=== PATIENT | female | born 1970 | race Caucasian/White ===

== ENCOUNTER 2018-07-18 13:24 | Outpatient (CLI) | payer OTHER | END 2018-07-18 13:25 | disposition home or self-care (01) | LOC: BICMAMMO 13:24 | PROVIDERS: ATTEND Family Medicine | DX: Z12.31 Encounter for screening mammogram for malignant neoplasm of breast (principal) | CPT/HCPCS: 77063; 77067 ==

== ENCOUNTER 2018-08-01 06:09 | Day surgery (SDC) | payer OTHER ==
[2018-07-31 09:32] VITALS: BMI 39.8
--- NOTE | 2018-08-01 07:02 | HP ---
HISTORY OF PRESENT ILLNESS: Sarah Parker is a 48-year-old female with anemia, chronic acid reflux, and Yun's mucosa. The patient had an EGD done by Dr. Dileep Baker and was told to have Yun's mucosa. The patient at the present time has a good control of acid reflux. The patient was fount to have anemia recently. The patient comes in for EGD because of a history of Yun's mucosa and also for a colonoscopy because of anemia. No other relevant history. ALLERGIES [place]. SOCIAL HISTORY: The patient does not smoke or drink alcohol. MEDICAL ILLNESSES: 1. Obesity. 2. Depression. 3. Anxiety. 4. Chronic acid reflux, Yun's mucosa. 5. Hiatal hernia. 6. Cataracts. 7. Hypothyroidism. 8. Osteoporosis. 9. Hiatal hernia repairs. 10. Partial hysterectomy. 11. Gastric banding followed by gastric sleeve. 12. Cholecystectomy. PHYSICAL EXAMINATION: GENERAL: Obese, appears comfortable. VITAL SIGNS: Pulse is 70, blood pressure 130/70. HEENT: Conjunctivae clear. CARDIOVASCULAR: First and second heart sounds normal. LUNGS: Clear to auscultation. ABDOMEN: Soft. No organomegaly. No tenderness. No masses. ADMITTING DIAGNOSES: 1. Anemia with no history of blood loss. 2. Chronic acid reflux, Yun's mucosa. 3. Hiatal hernia repair. 4. Gastric surgery. PLAN: EGD and colonoscopy. Job ID: [id number]
--- NOTE | 2018-08-01 12:22 | OP ---
DATE OF PROCEDURE: 08/01/2018 OPERATIVE PROCEDURE: Colonoscopy, attempted. The procedure terminated because of large amount of solid stools. PREOPERATIVE DIAGNOSES: Anemia, colon cancer. POSTOPERATIVE DIAGNOSIS: Failed colonoscopy because of retained stool. DESCRIPTION OF PROCEDURE: The patient was placed on the left lateral position and was given sedation by Anesthesia Department. A rectal exam was done. The scope was advanced into the rectum. No lesions felt on rectal exam. A Pentax video colonoscope was first introduced into the rectum and advanced to a distance of about 56 cm from the anal margin. The patient tried to wash out. I was hoping the proximal colon to be clean, but she had lot of stool and after reaching about 60 to 70 cm, the procedure was aborted. DISCHARGE PLANNING: This is a 48-year-old female, came for an EGD because of longstanding acid reflux and history of Yun mucosa. She also came for colonoscopy for anemia and colon cancer. The colonoscopy was unsuccessful because of retained stool. The EGD showed esophagitis, small hiatus hernia. Four-quadrant biopsy . DISCHARGE RECOMMENDATIONS: 1. Resume medicines as before. 2. We will bring the patient back in the near future for colonoscopy because of poor prep. Job ID: [id number]
--- NOTE | 2018-08-01 13:17 | OP ---
DATE OF PROCEDURE: 08/01/2018 PROCEDURES PERFORMED: Esophagogastroduodenoscopy with biopsy. PREOPERATIVE DIAGNOSES: Chronic acid reflux, history of Yun mucosa. POSTOPERATIVE DIAGNOSES: 1. Esophagitis, distal esophagus with edematous esophageal mucosa. 2. Small hiatal hernia. 3. Otherwise normal stomach and duodenum. DESCRIPTION OF PROCEDURE: The patient was placed on her left lateral position and was given sedation by Anesthesia Department. Pentax video gastroscope under direct vision was passed down the oropharynx past the GE junction into the stomach. The vocal cords appeared healthy. The upper two-thirds of the esophagus appeared normal. Over the distal esophagus, the patient was found to have mucosal edema, friability, and esophagitis. small hiatal hernia. Biopsy obtained from distal esophagus. Retroflexion of scope in the stomach revealed no pathology. In the gastric body, gastric antrum, no lesion seen. In the duodenal bulb, descending duodenum, no pathology seen. The scope was withdrawn back to the stomach. The stomach decompressed and Job ID: [id number]
== END 2018-08-01 08:50 | disposition home or self-care (01) ==
LOC: SDC 06:09
PROVIDERS: ATTEND Internal Medicine Gastroenterology
PROC: 0DB58ZX Excision of Esophagus, Via Natural or Artificial Opening Endoscopic, Diagnostic (ICD-10-PCS; principal; 2018-08-01)
PROC: 0DJD8ZZ Inspection of Lower Intestinal Tract, Via Natural or Artificial Opening Endoscopic (ICD-10-PCS; principal; 2018-08-01)
DX: K22.70 Barrett's esophagus without dysplasia (principal); K21.9 Gastro-esophageal reflux disease without esophagitis; K44.9 Diaphragmatic hernia without obstruction or gangrene; K20.9 Esophagitis, unspecified; D64.9 Anemia, unspecified; E03.9 Hypothyroidism, unspecified; F32.9 Major depressive disorder, single episode, unspecified; F41.9 Anxiety disorder, unspecified; H26.9 Unspecified cataract; M81.0 Age-related osteoporosis without current pathological fracture; E66.9 Obesity, unspecified; Z68.39 Body mass index [BMI] 39.0-39.9, adult; Z90.711 Acquired absence of uterus with remaining cervical stump; Z90.49 Acquired absence of other specified parts of digestive tract; Z98.84 Bariatric surgery status; Z79.899 Other long term (current) drug therapy
CPT/HCPCS: 88305; 88312; 88313

== ENCOUNTER 2019-01-02 06:50 | Day surgery (SDC) | payer OTHER ==
[2019-01-01 12:36] VITALS: BMI 38.2
--- NOTE | 2019-01-01 23:53 | HP ---
HISTORY OF PRESENT ILLNESS: The patient is a 48-year-old female, who comes in for an EGD and a colonoscopy. The patient has had dysphagia _tosolid foods, dysphagia only with solid foods. The dysphagia occurs usually with solid foods, particularly meat and bread. She also has mild anemia recently. The patient comes for an EGD because of dysphagia and for colonoscopy for anemia and colon cancer screening. ALLERGIES: LITHIUM. MEDICAL ILLNESS: 1. Chronic acid reflux. 2. History of Yun's mucosa. 3. Migraine. 4. Hypothyroidism. 5. Depression. 6. Anxiety. PHYSICAL EXAMINATION: VITAL SIGNS: Weight is 262 pounds. Pulse is 72, blood pressure 110/70. HEENT: Conjunctivae clear. CARDIOVASCULAR SYSTEM: First and second heart sounds heard. LUNGS: Clear to auscultation. ABDOMEN: Soft. No organomegaly. No tenderness. No masses. EXTREMITIES: Reveal no edema. ADMITTING DIAGNOSIS: A 48-year-old female with dysphagia, mild anemia. PLAN: EGD and colonoscopy. Job ID: [id number] MTDD
--- NOTE | 2019-01-02 10:35 | OP ---
DATE OF PROCEDURE: 01/02/2019 PROCEDURE PERFORMED: Attempted colonoscopy, incomplete due to retained solid stool in the sigmoid colon. DESCRIPTION OF PROCEDURE: The patient was placed on her left lateral position and was given sedation by Anesthesia Department. A rectal exam was done before the scope was advanced into the rectum. No lesions felt on rectal exam. Pentax video colonoscope was introduced into the rectum and advanced to a distance of about 30-34 cm. The mucosa appeared normal. Around 30 cm, the patient had a large amount of solid stool. I tried to irrigate with water to try to see whether I can clean the out the colon. We tried to wash out and get past the area of stool blocking lumen. Also, unable to do so. After 15 minutes of irrigation, not able to clean out the colon, The procedure was terminated. DISCHARGE PLANNING: This is a 48-year-old female came for EGD and colonoscopy. The EGD showed irregular Z-line. The colonoscopy was unsuccessful because of retained stool. Plan is to bring the patient in the near future for colonoscopy. Job ID: [id number] [facility]
--- NOTE | 2019-01-02 13:01 | OP ---
DATE OF PROCEDURE: 01/02/2019 PROCEDURE PERFORMED: Esophagogastroduodenoscopy with biopsy. PREOPERATIVE DIAGNOSIS: Dysphagia and anemia. POSTOPERATIVE DIAGNOSES: 1. No esophageal narrowing seen. 2. Irregular Z-line with mild mucosal friability. 3. Normal stomach and duodenum. The patient has had previous gastric sleeve surgery and no other pathology seen in the stomach. DESCRIPTION OF PROCEDURE: The patient was placed on her left lateral position and was given sedation by Anesthesia Department. A Pentax video gastroscope under direct vision passed down the oropharynx to the GE junction into the stomach and subsequently into the descending duodenum. Although, the patient complained of dysphagia, according to the endoscopy, the esophageal mucosa appeared normal. There was no esophageal stricture seen. The GE junction was wide open. The Z-line was irregular with mild friability. Biopsy obtained from the GE junction. The patient had a previous gastric sleeve. The gastric body, gastric antrum, fundus and cardia, no pathology seen. The duodenal bulb, descending duodenum, no pathology seen. The stomach decompressed and scope removed. Job ID: [id number]
[2019-01-02] MEDS ORDERED: PROPOFOL 200 MG/20 ML VIAL ONE (13:17)
== END 2019-01-02 09:42 | disposition home or self-care (01) ==
LOC: SDC 06:50
PROVIDERS: ATTEND Internal Medicine Gastroenterology
PROC: 0DB88ZX Excision of Small Intestine, Via Natural or Artificial Opening Endoscopic, Diagnostic (ICD-10-PCS; principal; 2019-01-02)
PROC: 0DJD8ZZ Inspection of Lower Intestinal Tract, Via Natural or Artificial Opening Endoscopic (ICD-10-PCS; principal; 2019-01-02)
DX: D64.9 Anemia, unspecified (principal); R13.10 Dysphagia, unspecified; K21.9 Gastro-esophageal reflux disease without esophagitis; E03.9 Hypothyroidism, unspecified; F32.9 Major depressive disorder, single episode, unspecified; F41.9 Anxiety disorder, unspecified; Z88.8 Allergy status to other drugs, medicaments and biological substances
CPT/HCPCS: 88305; 88312; 88313; J2704

== ENCOUNTER 2020-02-09 15:29 | Emergency (ER) | payer OTHER, SELFPAY ==
[~2020-02-09 15:29] MED LIST: Iopamidol-370 76% 500 ML 1 ML ONE
--- NOTE | 2020-02-09 16:24 | RAD ---
Chest AP view INDICATION: Syncopal episode with abdominal pain COMPARISON: June 16, 2014 FINDINGS: Lungs: The lungs are clear Cardiac silhouette: The cardiomediastinal silhouette appears within normal limits. Pulmonary vasculature: Normal Pleural spaces: No pleural effusion or pneumothorax is demonstrated. Upper abdomen: No abnormality seen. Osseous structures: No acute osseous abnormality. Additional findings: None. IMPRESSION: No acute cardiopulmonary abnormality.
[2020-02-09 16:32] LABS: Hemoglobin 10.1 g/dL (12.0-16.0); Mean Corpuscular HGB CONC 31.2 g/dL (32.0-36.0); Mean Corpuscular Hemoglobin 21.8 pg (27.0-31.0); Mean Platelet Volume 9.6 fL (7.4-10.4); Platelet Count 359 thou/uL (130-400); RBC Distribution Width 16.6 % (11.5-14.5); White Blood Cell (WBC) Count 9.6 thou/uL (4.8-10.8)
[2020-02-09 16:49] LABS: ALT (SGPT) 17 U/L (8-55); AST (SGOT) 17 U/L (5-34); Albumin 3.9 g/dL (3.5-5.0); Alkaline Phosphatase 121 U/L (40-110); Anion Gap 13 mmol/L (10-20); BUN (Urea Nitrogen) 9 mg/dL (9.8-20.1); Bilirubin, Total 0.5 mg/dL (0.2-1.2); Calc. Creatinine Clearance 0 mL/min (70-130); Calcium 9.3 mg/dL (7.8-10.44); Carbon Dioxide 25 mmol/L (22-29); Chloride 104 mmol/L (98-107); Estimated GFR-MDRD 60; Globulin 3.6 g/dL (2.4-3.5); Glucose 105 mg/dL (70-105); Lipase 12 U/L (8-78); Potassium 3.1 mmol/L (3.5-5.1); Protein, Total 7.5 g/dL (6.0-8.3); Sodium 139 mmol/L (136-145)
[2020-02-09 16:53] LABS: #Eosinphils 0.1 thou/uL (0.0-0.7); #Lymphocytes 1.1 thou/uL (1.20-3.40); #Monocytes 0.7 thou/uL (0.11-0.59); #Neutrophils 7.6 thou/uL (1.40-6.50); %Basophils 0.4 % (0.0-1.0); %Eosinophils 1.5 % (0.0-10.0); %Monocytes 7.6 % (0.0-10.0); %Neutrophils 79.6 % (42.0-75.0); MDiff Complete? YES; Microcytosis SLIGHT = 6-15 cells (100X) (0-5/hpf)
[2020-02-09 17:01] LABS: Bilirubin 1+ (Negative); Blood, Urine Negative (Negative); Clarity Turbid (Clear); Glucose, Urine (Dipstick) Normal (Negative); Leukocyte 250 Leu/uL (Negative); Nitrite Negative (Negative); Protein, Urine (Dipstick) 50 mg/dL (Neg-Trace); RBC/HPF 0-3 HPF (0-3); Squamous Epithelial 21-50 HPF (0-3)
[2020-02-09 17:12] LABS: Bacteria/HPF 2+ HPF (None Seen)
[2020-02-09 17:13] LABS: Mucous/LPF 1+ LPF (<2+)
--- NOTE | 2020-02-09 17:28 | CT ---
CT OF THE ABDOMEN AND PELVIS WITH IV CONTRAST INDICATION: Left lower quadrant abdominal pain COMPARISON: CT of the chest, abdomen and pelvis dated June 16, 2014 FINDINGS: ABDOMEN: Lung bases: Clear Liver: Fatty infiltration Gallbladder: Surgically absent Pancreas: Normal. Adrenal glands: Normal. Spleen: Normal. Kidneys and ureters: No focal renal lesion or hydronephrosis. There is a retroaortic left renal vein. Vasculature: There are mild vascular calcifications seen involving the visualized vasculature. Lymph nodes:No lymphadenopathy. Free fluid in abdomen:No free fluid is evident. PELVIS: Small and large bowel: There is a mild amount retained stool within the colon. Small bowel is of norm al caliber. The right colon and transverse colon are poorly distended. Appendix:Normal Bladder: Normal. Rectal and perirectal soft tissues:Normal. Reproductive structures: Surgically absent Free fluid in pelvis: No free fluid is evident. Lymphadenopathy pelvis: No lymphadenopathy is evident. Osseous structures: There is diffuse osteopenia. No acute fracture or subluxation demonstrated. Ther e is scattered degenerative and osteoarthritic changes. Soft tissues:There is dystrophic calcification seen within the soft tissues overlying the right glute al region possibly related to prior injections. IMPRESSION: 1. No acute abnormality. 2. Fatty liver 3. Chronic findings as above
== END 2020-02-09 18:53 | disposition home or self-care (01) ==
LOC: ERS 15:29
DX: N39.0 Urinary tract infection, site not specified (principal); E86.0 Dehydration; F31.9 Bipolar disorder, unspecified; F41.9 Anxiety disorder, unspecified; Z79.899 Other long term (current) drug therapy
CPT/HCPCS: 36415; 71045; 74177; 80053; 81003; 81015; 83690; 84484; 85025; 93005; 96360; Q9967

== ENCOUNTER 2021-01-22 15:07 | Outpatient (CLI) | payer OTHER | END 2021-01-22 15:08 | disposition home or self-care (01) | LOC: BICMAMMO 15:07 | PROVIDERS: ATTEND Family Medicine | DX: Z12.31 Encounter for screening mammogram for malignant neoplasm of breast (principal); Z98.890 Other specified postprocedural states; Z91.89 Other specified personal risk factors, not elsewhere classified | CPT/HCPCS: 77063; 77067 ==

== ENCOUNTER 2021-08-20 15:10 | Outpatient (CLI) | payer OTHER ==
[2021-08-20 16:26] LABS: #Basophils 0.1 10x3/uL (0.0-0.2); #Eosinphils 0.3 10x3/uL (0.0-0.5); #Monocytes 0.7 10x3/uL (0.0-1.1); #Neutrophils 4.9 10x3/uL (1.5-8.4); %Basophils 0.6 % (0.0-2.0); %Eosinophils 3.8 % (0.0-6.0); %Lymphocytes 30.7 % (18.0-47.0); %Monocytes 7.7 % (0.0-10.0); %Neutrophils 56.7 % (40.0-75.0); Hemoglobin 12.8 g/dL (12.0-15.5); Mean Corpuscular HGB CONC 32.3 g/dL (32.0-36.0); Mean Corpuscular Hemoglobin 28.7 pg (27.0-33.0); Mean Corpuscular Volume 88.8 fl (81.6-98.3); Platelet Count 296 10x3/uL (150-450); RBC Distribution Width 13.2 % (11.5-14.5); Red Blood Cell (RBC) Count 4.46 10x6/uL (3.90-5.03); White Blood Cell (WBC) Count 8.6 10x3/uL (3.5-10.5)
[2021-08-21 08:54] LABS: SARS-CoV-2 PCR by NAA Not Detected (NotDetected)
== END 2021-08-20 15:11 | disposition home or self-care (01) ==
LOC: LABBT 15:10
PROVIDERS: ATTEND Orthopaedic Surgery Hand Surgery
DX: Z01.812 Encounter for preprocedural laboratory examination (principal); G56.03 Carpal tunnel syndrome, bilateral upper limbs; Z20.822 Contact with and (suspected) exposure to COVID-19
CPT/HCPCS: 85025; U0003; U0005

== ENCOUNTER 2021-08-25 09:02 | Day surgery (SDC) | payer OTHER ==
[2021-08-18 14:31] VITALS: BMI 40.7
[2021-08-25] MEDS ORDERED: ceFAZolin 2 GM/DEX 5% 100 ML BAG ONE (10:52)
[2021-08-25] MEDS ORDERED: Midazolam HCl 2 mg/2 ml Vial ONE (12:44)
== END 2021-08-25 14:00 | disposition home or self-care (01) ==
LOC: SDC 09:02
PROVIDERS: ATTEND Orthopaedic Surgery Hand Surgery
DX: G56.03 Carpal tunnel syndrome, bilateral upper limbs (principal); G56.13 Other lesions of median nerve, bilateral upper limbs; Z53.9 Procedure and treatment not carried out, unspecified reason; Z79.899 Other long term (current) drug therapy; Z88.2 Allergy status to sulfonamides; Z88.8 Allergy status to other drugs, medicaments and biological substances
CPT/HCPCS: J2250

== ENCOUNTER 2021-08-28 05:49 | Day surgery (SDC) | payer OTHER ==
[2021-08-28] MEDS ORDERED: Fentanyl 100 MCG/2 ML VIAL ONE (06:09)
[2021-08-28] MEDS ORDERED: Phenylephrine 10 MG/ML VIAL ONE (06:09)
[2021-08-28] MEDS ORDERED: Sodium Chloride 0.9% 10 ML ONE (06:09)
[2021-08-28] MEDS ORDERED: PHENYLEPHRINE-NS 100 MCG/ML 10 ML SYRINGE ONE ×2 (06:09→07:22)
[2021-08-28] MEDS ORDERED: Midazolam HCl 2 mg/2 ml Vial ONE (06:09)
[2021-08-28] MEDS ORDERED: HYDROmorphone 2 MG/ML VIAL ONE (06:09)
[2021-08-28] MEDS ORDERED: Bacitracin Zinc Ointment 30 gm TUBE ONE (06:15)
[2021-08-28] MEDS ORDERED: Betamet Acet/Betamet Na Ph 30 MG/5 ML VIAL ONE ×2 (06:15→08:25)
[2021-08-28] MEDS ORDERED: Bupivacaine PF 0.5% 30 ML VIAL ONE ×2 (06:15→07:50)
[2021-08-28] MEDS ORDERED: Neomycin-Polymyxin 1 ML AMP ONE (06:15)
[2021-08-28] MEDS ORDERED: ceFAZolin 2 GM/Dextrose 50 ML IVPB ONE (07:07)
[2021-08-28] MEDS ORDERED: Dexamethasone 20 MG/5 ML VIAL ONE (07:22)
[2021-08-28] MEDS ORDERED: Succinylcholine 200 MG/10 ml SYRINGE FS ONE (07:22)
[2021-08-28] MEDS ORDERED: PROPOFOL 200 MG/20 ML VIAL ONE (07:22)
[2021-08-28] MEDS ORDERED: Ondansetron PF 4 MG/2 ML Vial ONE (07:22)
[2021-08-28] MEDS ORDERED: Lidocaine 1% PF 5 ML VIAL ONE (07:22)
[2021-08-28] MEDS ORDERED: ePHEDrine 50 MG/ML VIAL ONE (07:22)
[2021-08-28] MEDS ORDERED: Bupivacaine 0.25% HCL 30 ML VIAL ONE ×2 (07:49→07:50)
[2021-08-28] MEDS ORDERED: Ketorolac Tromethamine 30 MG/ML VIAL ONE (10:00)
== END 2021-08-28 11:48 | disposition home or self-care (01) ==
LOC: SDC 05:49
PROVIDERS: ATTEND Orthopaedic Surgery Hand Surgery
PROC: 01N50ZZ Release Median Nerve, Open Approach (ICD-10-PCS; principal; 2021-08-28)
DX: G56.03 Carpal tunnel syndrome, bilateral upper limbs (principal); G56.13 Other lesions of median nerve, bilateral upper limbs; D64.9 Anemia, unspecified; Z79.890 Hormone replacement therapy; Z79.899 Other long term (current) drug therapy; Z88.2 Allergy status to sulfonamides; Z88.8 Allergy status to other drugs, medicaments and biological substances
CPT/HCPCS: C1889; J0690; J0702; J1170; J1885; J2250; J2370; J3010; S0020

== ENCOUNTER 2021-12-23 08:15 | Inpatient (IN) | payer OTHER ==
[2021-12-23] MEDS ORDERED: Ketorolac Tromethamine 30 MG/ML VIAL ONE (08:43)
[2021-12-23 09:18] LABS: ALT (SGPT) 28 U/L (8-55); AST (SGOT) 31 U/L (5-34); Albumin 3.4 g/dL (3.5-5.0); Alkaline Phosphatase 102 U/L (40-110); Anion Gap 9 mmol/L (10-20); BUN (Urea Nitrogen) 21 mg/dL (9.8-20.1); Bilirubin, Total 0.6 mg/dL (0.2-1.2); CK (CPK) 566 U/L (29-168); Calc. Creatinine Clearance 0 mL/min (70-130); Calcium 8.9 mg/dL (7.8-10.44); Carbon Dioxide 35 mmol/L (22-29); Chloride 100 mmol/L (98-107); Globulin 2.5 g/dL (2.4-3.5); Glucose 104 mg/dL (70-105); Protein, Total 5.9 g/dL (6.0-8.3); Sodium 141 mmol/L (136-145)
[2021-12-23 09:23] LABS: Potassium 2.5 mmol/L (3.5-5.1)
[2021-12-23] MEDS ORDERED: Potassium Chloride 20 MEQ TAB ONE (10:24)
[2021-12-23] MEDS ORDERED: Potassium Chloride 20 MEQ/100 ML PREMIX BAG ONE ×2 (10:24→12:12)
[2021-12-23] MEDS ORDERED: Morphine 4 MG/ML VIAL ONE (10:30)
[2021-12-23 10:57] LABS: #Eosinphils 0.2 thou/uL (0.0-0.7); #Lymphocytes 1.7 thou/uL (1.20-3.40); #Monocytes 0.7 thou/uL (0.11-0.59); #Neutrophils 9.8 thou/uL (1.40-6.50); %Basophils 0.3 % (0.0-1.0); %Eosinophils 1.9 % (0.0-10.0); %Lymphocytes 13.6 % (21.0-51.0); %Monocytes 5.3 % (0.0-10.0); %Neutrophils 78.9 % (42.0-75.0); Hemoglobin 12.5 g/dL (12.0-16.0); Mean Corpuscular HGB CONC 32.4 g/dL (32.0-36.0); Mean Corpuscular Hemoglobin 29.6 pg (27.0-31.0); Mean Corpuscular Volume 91.2 fL (78.0-98.0); Mean Platelet Volume 7.7 fL (7.4-10.4); Platelet Count 248 thou/uL (130-400); RBC Distribution Width 12.2 % (11.5-14.5); Red Blood Cell (RBC) Count 4.21 mill/uL (4.20-5.40); White Blood Cell (WBC) Count 12.4 thou/uL (4.8-10.8)
[2021-12-23 11:09] LABS: Magnesium 1.9 mg/dL (1.6-2.6); Phosphorus 2.9 mg/dL (2.3-4.7)
[2021-12-23] MEDS ORDERED: Dextrose 50% Abboject 50 ML SYRINGE SLOW IVP PRN (11:31)
[2021-12-23] MEDS ORDERED: Dextrose 5% in Water 1,000 ML IV PRN (11:31)
[2021-12-23] MEDS ORDERED: Ondansetron ODT 4 MG TAB PO PRN (11:31)
[2021-12-23] MEDS ORDERED: hydrALAZINE 20 MG/ML VIAL SLOW IVP PRN (11:31)
[2021-12-23] MEDS ORDERED: Ondansetron PF 4 MG/2 ML Vial IVP PRN (11:31)
[2021-12-23] MEDS ORDERED: Morphine 2 MG/ML VIAL SLOW IVP PRN (11:31)
[2021-12-23] MEDS ORDERED: Ibuprofen 800 MG TAB PO PRN (11:41)
[2021-12-23] MEDS ORDERED: Gabapentin 100 MG CAP PO SCH (14:00)
[2021-12-23] MEDS: Acetaminophen 500 MG TAB PO SCH ×3 (14:08→23:27)
[2021-12-23] MEDS: traMADol HCl 50 MG TAB PO SCH ×3 (14:08→23:27)
[2021-12-23] MEDS ORDERED: ceFAZolin (BATCH) 2 GM in Premix Bag 1 BAG IVPB SCH (15:00)
[2021-12-23 16:08] VITALS: BMI 38.9
[2021-12-23] MEDS: Cyclobenzaprine 10 MG TAB PO PRN (17:41)
[2021-12-23] MEDS: Sodium Chloride 0.9% 1,000 ML IV SCH (17:44)
[2021-12-23] MEDS: Morphine 4 MG/ML VIAL SLOW IVP PRN ×2 (18:27→20:54)
[2021-12-23] MEDS ORDERED: Zolpidem Tartrate 5 MG TAB PO PRN (19:57)
[2021-12-23] MEDS: Senokot S 8.6-50 MG TAB PO SCH (20:49)
[2021-12-23] MEDS ORDERED: Famotidine 20 MG TAB PO SCH (21:00)
[2021-12-23] MEDS: Gabapentin 300 MG CAP PO SCH (21:51)
[2021-12-24 00:20] LABS: SARS-CoV-2 NAA Rapid Test Not Detected (NotDetected)
[2021-12-24] MEDS: traMADol HCl 50 MG TAB PO SCH ×4 (00:54→17:43)
[2021-12-24] MEDS: Sodium Chloride 0.9% 1,000 ML IV SCH (02:13)
[2021-12-24] MEDS: Cyclobenzaprine 10 MG TAB PO PRN ×2 (02:17→21:52)
[2021-12-24] MEDS: Ibuprofen 200 MG TAB PO PRN ×2 (02:17→10:16)
[2021-12-24] MEDS: Morphine 4 MG/ML VIAL SLOW IVP PRN ×2 (04:07→07:45)
[2021-12-24] MEDS ORDERED: Levothyroxine Sodium 75 MCG TAB PO SCH ×2 (06:00→09:00)
[2021-12-24] MEDS: Acetaminophen 500 MG TAB PO SCH ×3 (06:00→17:44)
[2021-12-24] MEDS: Gabapentin 300 MG CAP PO SCH ×4 (06:02→21:38)
[2021-12-24 06:22] LABS: Anion Gap 13 mmol/L (10-20); BUN (Urea Nitrogen) 17 mg/dL (9.8-20.1); Calc. Creatinine Clearance 163 mL/min (70-130); Calcium 8.3 mg/dL (7.8-10.44); Carbon Dioxide 26 mmol/L (22-29); Chloride 106 mmol/L (98-107); Glucose 91 mg/dL (70-105); Potassium 3.2 mmol/L (3.5-5.1); Sodium 142 mmol/L (136-145)
[2021-12-24 06:34] LABS: #Eosinphils 0.1 thou/uL (0.0-0.7); #Lymphocytes 1.9 thou/uL (1.20-3.40); #Monocytes 0.7 thou/uL (0.11-0.59); #Neutrophils 7.5 thou/uL (1.40-6.50); %Basophils 0.3 % (0.0-1.0); %Eosinophils 0.9 % (0.0-10.0); %Lymphocytes 18.7 % (21.0-51.0); %Monocytes 7.2 % (0.0-10.0); %Neutrophils 72.8 % (42.0-75.0); Hemoglobin 11.9 g/dL (12.0-16.0); Mean Corpuscular HGB CONC 33.1 g/dL (32.0-36.0); Mean Corpuscular Hemoglobin 31.2 pg (27.0-31.0); Mean Corpuscular Volume 94.1 fL (78.0-98.0); Mean Platelet Volume 7.3 fL (7.4-10.4); Platelet Count 245 thou/uL (130-400); RBC Distribution Width 12.3 % (11.5-14.5); Red Blood Cell (RBC) Count 3.82 mill/uL (4.20-5.40); White Blood Cell (WBC) Count 10.2 thou/uL (4.8-10.8)
[2021-12-24 07:00] LABS: CK (CPK) 284 U/L (29-168); Phosphorus 3.1 mg/dL (2.3-4.7)
[2021-12-24] MEDS: DULoxetine 60 MG CAP PO SCH (07:50)
[2021-12-24] MEDS: Multivit, Therapeutic 1 TAB PO SCH (07:50)
[2021-12-24] MEDS: Senokot S 8.6-50 MG TAB PO SCH ×2 (07:51→21:37)
[2021-12-24] MEDS: Polyethylene Glycol 3350 17 GM Packet PO SCH (07:59)
[2021-12-24] MEDS ORDERED: Potassium Chloride 40 MEQ in Premix Bag 1 BAG IVPB SCH (08:00)
[2021-12-24] MEDS ORDERED: DULoxetine 60 MG CAP PO SCH (09:00)
[2021-12-24] MEDS ORDERED: ceFAZolin (BATCH) 2 GM/100 ML BAG ONE (12:52)
[2021-12-24] MEDS ORDERED: Succinylcholine 200 MG/10 ml SYRINGE FS ONE (12:57)
[2021-12-24] MEDS ORDERED: Albuterol Sulfate HFA (OR ONLY) ONE ×2 (12:57→13:13)
[2021-12-24] MEDS ORDERED: Dexamethasone 20 MG/5 ML VIAL ONE (12:57)
[2021-12-24] MEDS ORDERED: PROPOFOL 200 MG/20 ML VIAL ONE (12:57)
[2021-12-24] MEDS ORDERED: Glycopyrrolate 0.2 MG/ML 5 ML SYRINGE ONE (12:57)
[2021-12-24] MEDS ORDERED: PHENYLEPHRINE-NS 100 MCG/ML 10 ML SYRINGE ONE (12:57)
[2021-12-24] MEDS ORDERED: ePHEDrine 50 MG/ML VIAL ONE (12:57)
[2021-12-24] MEDS ORDERED: Lidocaine 1% PF 5 ML VIAL ONE (12:57)
[2021-12-24] MEDS ORDERED: Ondansetron PF 4 MG/2 ML Vial ONE (12:57)
[2021-12-24] MEDS ORDERED: fentaNYL Citrate/PF 100 MCG/2 ML SYRINGE ONE ×2 (12:58→14:10)
[2021-12-24] MEDS ORDERED: Promethazine HCl 25 MG/ML VIAL IVPB PRN (14:37)
[2021-12-24] MEDS ORDERED: Ketorolac Tromethamine 30 MG/ML VIAL IVP PRN (14:37)
[2021-12-24] MEDS ORDERED: Promethazine HCl 25 MG/ML VIAL IM PRN (14:37)
[2021-12-24] MEDS ORDERED: Ondansetron HCl/PF 4 MG/2 ML Vial IVP PRN (14:37)
[2021-12-24] MEDS ORDERED: Fentanyl 100 MCG/2 ML VIAL ONE ×2 (14:47→15:26)
[2021-12-24] MEDS: traMADol HCl 50 MG TAB PO PRN (17:46)
[2021-12-24] MEDS: ceFAZolin (BATCH) 2 GM in Premix Bag 1 BAG IVPB SCH (21:36)
[2021-12-24] MEDS: Zolpidem Tartrate 5 MG TAB PO SCH (21:38)
[2021-12-25] MEDS: Acetaminophen 500 MG TAB PO SCH ×5 (00:54→23:44)
[2021-12-25] MEDS: traMADol HCl 50 MG TAB PO SCH ×5 (00:54→23:44)
[2021-12-25 05:31] LABS: #Eosinphils 0.1 thou/uL (0.0-0.7); #Lymphocytes 1.6 thou/uL (1.20-3.40); #Monocytes 0.7 thou/uL (0.11-0.59); %Basophils 0.2 % (0.0-1.0); %Eosinophils 0.6 % (0.0-10.0); %Lymphocytes 15.7 % (21.0-51.0); %Monocytes 6.7 % (0.0-10.0); %Neutrophils 76.7 % (42.0-75.0); Hemoglobin 10.4 g/dL (12.0-16.0); Mean Corpuscular HGB CONC 32.5 g/dL (32.0-36.0); Mean Corpuscular Hemoglobin 30.3 pg (27.0-31.0); Mean Corpuscular Volume 93.2 fL (78.0-98.0); Mean Platelet Volume 7.3 fL (7.4-10.4); Platelet Count 246 thou/uL (130-400); RBC Distribution Width 12.3 % (11.5-14.5); Red Blood Cell (RBC) Count 3.44 mill/uL (4.20-5.40); White Blood Cell (WBC) Count 10.4 thou/uL (4.8-10.8)
[2021-12-25 05:48] LABS: Anion Gap 10 mmol/L (10-20); BUN (Urea Nitrogen) 18 mg/dL (9.8-20.1); Calc. Creatinine Clearance 151 mL/min (70-130); Calcium 8.3 mg/dL (7.8-10.44); Carbon Dioxide 30 mmol/L (22-29); Chloride 104 mmol/L (98-107); Glucose 160 mg/dL (70-105); Phosphorus 2.9 mg/dL (2.3-4.7); Potassium 3.3 mmol/L (3.5-5.1); Sodium 141 mmol/L (136-145)
[2021-12-25] MEDS: Levothyroxine Sodium 75 MCG TAB PO SCH (05:58)
[2021-12-25] MEDS: ceFAZolin (BATCH) 2 GM in Premix Bag 1 BAG IVPB SCH (06:00)
[2021-12-25] MEDS ORDERED: Morphine 2 MG/ML VIAL SLOW IVP PRN (07:48)
[2021-12-25] MEDS ORDERED: Potassium Phosphate 30 MMOL in Sodium Chloride 0.9% 250 ML 250 ML IVPB SCH (08:00)
[2021-12-25] MEDS ORDERED: Potassium Chloride 20 MEQ TAB PO SCH (08:00)
[2021-12-25] MEDS: Gabapentin 300 MG CAP PO SCH ×3 (09:07→21:28)
[2021-12-25] MEDS: Ibuprofen 200 MG TAB PO PRN (09:07)
[2021-12-25] MEDS: Polyethylene Glycol 3350 17 GM Packet PO SCH (09:07)
[2021-12-25] MEDS: DULoxetine 60 MG CAP PO SCH (09:07)
[2021-12-25] MEDS: Aspirin 81 mg Enteric Coated Tablet PO SCH ×2 (09:07→21:28)
[2021-12-25] MEDS: Multivit, Therapeutic 1 TAB PO SCH (09:07)
[2021-12-25] MEDS: Senokot S 8.6-50 MG TAB PO SCH ×2 (11:44→21:29)
[2021-12-25] MEDS: Ibuprofen 200 MG TAB PO SCH ×2 (14:50→21:29)
[2021-12-25] MEDS: Zolpidem Tartrate 5 MG TAB PO SCH (21:29)
[2021-12-26] MEDS: Levothyroxine Sodium 75 MCG TAB PO SCH (04:02)
[2021-12-26 05:28] LABS: #Eosinphils 0.5 thou/uL (0.0-0.7); #Lymphocytes 1.9 thou/uL (1.20-3.40); #Monocytes 0.4 thou/uL (0.11-0.59); #Neutrophils 3.7 thou/uL (1.40-6.50); %Basophils 0.5 % (0.0-1.0); %Lymphocytes 28.9 % (21.0-51.0); %Monocytes 6.5 % (0.0-10.0); %Neutrophils 57.1 % (42.0-75.0); Mean Corpuscular HGB CONC 32.2 g/dL (32.0-36.0); Mean Corpuscular Hemoglobin 30.1 pg (27.0-31.0); Mean Corpuscular Volume 93.7 fL (78.0-98.0); Platelet Count 224 thou/uL (130-400); RBC Distribution Width 12.5 % (11.5-14.5); White Blood Cell (WBC) Count 6.5 thou/uL (4.8-10.8)
[2021-12-26] MEDS: traMADol HCl 50 MG TAB PO SCH ×3 (05:34→18:01)
[2021-12-26] MEDS: Ibuprofen 200 MG TAB PO SCH ×3 (05:34→21:48)
[2021-12-26] MEDS: Acetaminophen 500 MG TAB PO SCH ×3 (05:35→18:02)
[2021-12-26 05:47] LABS: Anion Gap 11 mmol/L (10-20); BUN (Urea Nitrogen) 21 mg/dL (9.8-20.1); Calc. Creatinine Clearance 153 mL/min (70-130); Calcium 8.3 mg/dL (7.8-10.44); Carbon Dioxide 28 mmol/L (22-29); Chloride 105 mmol/L (98-107); Glucose 156 mg/dL (70-105); Potassium 3.7 mmol/L (3.5-5.1); Sodium 140 mmol/L (136-145)
[2021-12-26] MEDS: Senokot S 8.6-50 MG TAB PO SCH ×2 (08:07→21:48)
[2021-12-26] MEDS: Polyethylene Glycol 3350 17 GM Packet PO SCH (08:07)
[2021-12-26] MEDS: Aspirin 81 mg Enteric Coated Tablet PO SCH ×2 (08:07→21:48)
[2021-12-26] MEDS: Gabapentin 300 MG CAP PO SCH ×3 (08:07→21:48)
[2021-12-26] MEDS: DULoxetine 60 MG CAP PO SCH (08:07)
[2021-12-26] MEDS: Multivit, Therapeutic 1 TAB PO SCH (08:07)
[2021-12-26] MEDS: Zolpidem Tartrate 5 MG TAB PO SCH (21:47)
[2021-12-27] MEDS: traMADol HCl 50 MG TAB PO SCH ×4 (00:56→17:58)
[2021-12-27] MEDS: Acetaminophen 500 MG TAB PO SCH ×4 (00:56→17:58)
[2021-12-27] MEDS: Levothyroxine Sodium 75 MCG TAB PO SCH (04:14)
[2021-12-27] MEDS: Ibuprofen 200 MG TAB PO SCH ×3 (05:10→21:49)
[2021-12-27] MEDS: Multivit, Therapeutic 1 TAB PO SCH (08:26)
[2021-12-27] MEDS: Gabapentin 300 MG CAP PO SCH ×3 (08:26→21:49)
[2021-12-27] MEDS: Polyethylene Glycol 3350 17 GM Packet PO SCH (08:26)
[2021-12-27] MEDS: Aspirin 81 mg Enteric Coated Tablet PO SCH ×2 (08:26→21:49)
[2021-12-27] MEDS: DULoxetine 60 MG CAP PO SCH (08:26)
[2021-12-27] MEDS: Senokot S 8.6-50 MG TAB PO SCH ×2 (08:27→21:50)
[2021-12-27] MEDS: Zolpidem Tartrate 5 MG TAB PO SCH (21:49)
[2021-12-27] MEDS: traMADol HCl 50 MG TAB PO PRN (21:51)
[2021-12-28] MEDS: traMADol HCl 50 MG TAB PO SCH ×3 (01:18→11:47)
[2021-12-28] MEDS: Acetaminophen 500 MG TAB PO SCH ×3 (01:18→11:47)
[2021-12-28] MEDS: Cyclobenzaprine 10 MG TAB PO PRN (01:19)
[2021-12-28] MEDS: traMADol HCl 50 MG TAB PO PRN ×2 (03:50→13:48)
[2021-12-28] MEDS: Levothyroxine Sodium 75 MCG TAB PO SCH (05:30)
[2021-12-28] MEDS: Ibuprofen 200 MG TAB PO SCH ×2 (05:30→13:47)
[2021-12-28] MEDS: Gabapentin 300 MG CAP PO SCH (08:23)
[2021-12-28] MEDS: Senokot S 8.6-50 MG TAB PO SCH (08:24)
[2021-12-28] MEDS: DULoxetine 60 MG CAP PO SCH (08:24)
[2021-12-28] MEDS: Polyethylene Glycol 3350 17 GM Packet PO SCH (08:24)
[2021-12-28] MEDS: Aspirin 81 mg Enteric Coated Tablet PO SCH (08:24)
[2021-12-28] MEDS: Multivit, Therapeutic 1 TAB PO SCH (08:24)
[2021-12-28 12:47] VITALS: BP 134/80; TEMP 97.7
== END 2021-12-28 13:55 | DRG 481 ==
LOC: ERS 08:15 → SJJU 11:38
PROVIDERS: ADMIT Specialist; ATTEND Surgery
PROC: 0QH734Z Insertion of Internal Fixation Device into Left Upper Femur, Percutaneous Approach (ICD-10-PCS; principal; 2021-12-24)
DX: S72.22XA Displaced subtrochanteric fracture of left femur, initial encounter for closed fracture (principal); D61.9 Aplastic anemia, unspecified; Z20.822 Contact with and (suspected) exposure to COVID-19; E87.6 Hypokalemia; M16.12 Unilateral primary osteoarthritis, left hip; E03.9 Hypothyroidism, unspecified; K22.70 Barrett's esophagus without dysplasia; G43.909 Migraine, unspecified, not intractable, without status migrainosus; F41.9 Anxiety disorder, unspecified; F31.9 Bipolar disorder, unspecified; K21.9 Gastro-esophageal reflux disease without esophagitis; W18.30XA Fall on same level, unspecified, initial encounter; E66.9 Obesity, unspecified; Z88.8 Allergy status to other drugs, medicaments and biological substances; Z88.2 Allergy status to sulfonamides; Z79.899 Other long term (current) drug therapy; Z87.891 Personal history of nicotine dependence; Z90.49 Acquired absence of other specified parts of digestive tract; Z90.710 Acquired absence of both cervix and uterus; Z98.84 Bariatric surgery status; Z68.39 Body mass index [BMI] 39.0-39.9, adult
CPT/HCPCS: 36415; 71045; 72170; 76000; 80048; 80053; 82550; 83735; 84100; 85025; 86850; 86900; 86901; 93005; 96365; 96366; 96375; C1713; J0690; J1100; J1885; J2270; J2405; J2704; J3010; J3480; J3490; J7030; J7050; U0002

== ENCOUNTER 2023-02-22 11:34 | Outpatient (CLI) | payer OTHER ==
[2023-02-22 13:19] LABS: Hemoglobin 12.6 g/dL (12.0-15.5); Mean Corpuscular HGB CONC 31.7 g/dL (32.0-36.0); Mean Corpuscular Hemoglobin 28.5 pg (27.0-33.0); Mean Corpuscular Volume 89.8 fl (81.6-98.3); Mean Platelet Volume 10.3 fl (7.4-10.4); Platelet Count 293 10x3/uL (150-450); RBC Distribution Width 13.9 % (11.5-14.5); Red Blood Cell (RBC) Count 4.42 10x6/uL (3.90-5.03); White Blood Cell (WBC) Count 7.6 10x3/uL (3.5-10.5)
[2023-02-22 13:34] LABS: Prothrombin Time 10.3 sec (9.5-12.1)
[2023-02-22 13:48] LABS: Anion Gap 14 mmol/L (10-20); BUN (Urea Nitrogen) 9 mg/dL (9.8-20.1); Calc. Creatinine Clearance 0 mL/min (70-130); Carbon Dioxide 23 mmol/L (22-29); Chloride 107 mmol/L (98-107); Estimated GFR 75; Glucose 128 mg/dL (70-105); Potassium 4.2 mmol/L (3.5-5.1); Sodium 140 mmol/L (136-145)
== END 2023-02-22 11:35 | disposition home or self-care (01) ==
LOC: LABBT 11:34
PROVIDERS: ATTEND Orthopaedic Surgery
DX: Z01.812 Encounter for preprocedural laboratory examination (principal); S72.92XD Unspecified fracture of left femur, subsequent encounter for closed fracture with routine healing
CPT/HCPCS: 80048; 85027; 85610; 86850; 86900; 86901; 87081

== ENCOUNTER 2023-03-04 05:56 | Inpatient (IN) | payer OTHER ==
[2023-02-22 12:36] VITALS: BMI 42.0
[2023-03-04] MEDS ORDERED: SUGAMMADEX SODIUM 200 MG/2 ML VIAL ONE (07:21)
[2023-03-04] MEDS ORDERED: Fentanyl 250 MCG/5 ML VIAL ONE (07:21)
[2023-03-04] MEDS ORDERED: Ketamine 50 MG/ML (10ML VIAL) ONE (07:21)
[2023-03-04] MEDS ORDERED: HYDROmorphone 0.5 MG/0.5 ML SYRINGE ONE ×6 (07:22→16:01)
[2023-03-04] MEDS ORDERED: CEFAZOLIN 2 GM VIAL ONE ×2 (07:32→14:05)
[2023-03-04] MEDS ORDERED: Sodium Chloride 0.9% 100 ML ONE (07:32)
[2023-03-04] MEDS ORDERED: Lidocaine 1% PF 5 ML VIAL ONE (07:49)
[2023-03-04] MEDS ORDERED: Rocuronium Bromide 10 MG/ML (10ML VIAL) ONE (07:49)
[2023-03-04] MEDS ORDERED: PROPOFOL 200 MG/20 ML VIAL ONE (07:49)
[2023-03-04] MEDS ORDERED: ePHEDrine Sulfate 50 MG/10 ML VIAL ONE ×2 (07:49→11:19)
[2023-03-04] MEDS ORDERED: Acetaminophen 325 MG TAB PO PRN (07:58)
[2023-03-04] MEDS ORDERED: Ondansetron PF 4 MG/2 ML Vial IVP PRN (07:58)
[2023-03-04] MEDS ORDERED: Promethazine HCl 25 MG/ML VIAL IM PRN ×2 (07:58→09:08)
[2023-03-04] MEDS ORDERED: diphenhydrAMINE 25 MG CAP PO PRN (07:58)
[2023-03-04] MEDS ORDERED: Promethazine 25 MG TAB PO PRN (08:05)
[2023-03-04] MEDS ORDERED: GALCANEZUMAB GNLM 120 MG/ML SQ SCH (08:15)
[2023-03-04] MEDS ORDERED: GALCANEZUMAB GNLM 120 MG/ML SC SCH (08:30)
[2023-03-04] MEDS ORDERED: Tranexamic Acid 1,000 MG/10 ML VIAL ONE (08:49)
[2023-03-04] MEDS ORDERED: Non-Formulary Item 1 EACH (Gabapentin [Gabapentin] 600 MG Tablet) PO SCH (09:00)
[2023-03-04] MEDS ORDERED: Multivitamin W/ Minerals 1 TAB PO SCH (09:00)
[2023-03-04] MEDS ORDERED: Non-Formulary Item 1 EACH (Multivit-Min/Iron/Folic/Lutein [Centrum Silver Women] 1 TABLET PO SCH (09:00)
[2023-03-04] MEDS ORDERED: Cetirizine HCl 10 MG TAB PO SCH (09:00)
[2023-03-04] MEDS ORDERED: Non-Formulary Item 1 EACH (Cyanocobalamin (Vitamin B-12) [Vitamin B-12] 1,000 MCG Capsule PO SCH (09:00)
[2023-03-04] MEDS ORDERED: HYDROmorphone 2 MG/ML VIAL SLOW IVP PRN (09:08)
[2023-03-04] MEDS ORDERED: Ondansetron HCl/PF 4 MG/2 ML Vial IVP PRN (09:08)
[2023-03-04] MEDS ORDERED: Vancomycin 1 GM VIAL ONE (10:24)
[2023-03-04] MEDS ORDERED: fentaNYL 50 mcg/mL 1 mL Vial ONE ×4 (11:54→14:30)
[2023-03-04] MEDS: CEFAZOLIN 2 GM in Sodium Chloride 0.9% 100 ML IVPB SCH ×2 (14:09→22:55)
[2023-03-04] MEDS ORDERED: Metoprolol Tartrate 5 MG/5 ML VIAL ONE (15:00)
[2023-03-04] MEDS: Multivitamin W/ Minerals 1 TAB PO SCH (17:01)
[2023-03-04] MEDS: Levothyroxine Sodium 75 MCG TAB PO SCH (17:01)
[2023-03-04] MEDS: Ferrous Gluconate 324 MG TAB PO SCH ×2 (17:01→20:13)
[2023-03-04] MEDS: Gabapentin 300 MG CAP PO SCH ×2 (17:01→20:13)
[2023-03-04] MEDS: Loratadine 10 MG TAB PO SCH (17:01)
[2023-03-04] MEDS: DULoxetine 60 MG CAP PO SCH (17:01)
[2023-03-04] MEDS: Cyanocobalamin (Vitamin B-12) 1,000 MCG TAB PO SCH (17:01)
[2023-03-04] MEDS: Aspirin 81 mg Enteric Coated Tablet PO SCH ×2 (17:01→20:13)
[2023-03-04] MEDS: Senokot S 8.6-50 MG TAB PO SCH ×2 (17:02→20:13)
[2023-03-04] MEDS: tiZANidine HCl 4 MG TAB PO SCH ×3 (17:02→22:54)
[2023-03-04] MEDS: Potassium Chloride 10 MEQ TAB PO SCH (17:02)
[2023-03-04] MEDS: Rosuvastatin 10 MG TAB PO SCH (17:02)
[2023-03-04] MEDS: HYDROcodone/Acetaminophen 10/325 mg Tablet PO PRN ×2 (17:31→22:54)
[2023-03-04] MEDS: fentaNYL 50 mcg/mL 1 mL Vial SLOW IVP PRN (20:14)
[2023-03-05] MEDS: fentaNYL 50 mcg/mL 1 mL Vial SLOW IVP PRN (02:07)
[2023-03-05 06:14] LABS: Hemoglobin 7.5 g/dL (12.0-16.0); Mean Corpuscular HGB CONC 31.3 g/dL (32.0-36.0); Mean Corpuscular Hemoglobin 28.1 pg (27.0-31.0); Mean Corpuscular Volume 89.9 fl (78.0-98.0); Mean Platelet Volume 9.8 fL (7.4-10.4); Platelet Count 231 10x3/uL (130-400); RBC Distribution Width 13.9 % (11.5-14.5); Red Blood Cell (RBC) Count 2.67 mill/uL (4.20-5.40); White Blood Cell (WBC) Count 9.7 10x3/uL (4.8-10.8)
[2023-03-05] MEDS: HYDROcodone/Acetaminophen 10/325 mg Tablet PO PRN ×3 (06:27→20:14)
[2023-03-05] MEDS: Loratadine 10 MG TAB PO SCH (09:46)
[2023-03-05] MEDS: DULoxetine 60 MG CAP PO SCH (09:46)
[2023-03-05] MEDS: Cyanocobalamin (Vitamin B-12) 1,000 MCG TAB PO SCH (09:46)
[2023-03-05] MEDS: Senokot S 8.6-50 MG TAB PO SCH ×2 (09:46→20:13)
[2023-03-05] MEDS: Gabapentin 300 MG CAP PO SCH ×3 (09:46→20:14)
[2023-03-05] MEDS: Rosuvastatin 10 MG TAB PO SCH (09:47)
[2023-03-05] MEDS: Levothyroxine Sodium 75 MCG TAB PO SCH (09:47)
[2023-03-05] MEDS: Potassium Chloride 10 MEQ TAB PO SCH (09:47)
[2023-03-05] MEDS: Multivitamin W/ Minerals 1 TAB PO SCH (09:47)
[2023-03-05] MEDS: Aspirin 81 mg Enteric Coated Tablet PO SCH ×2 (09:47→20:13)
[2023-03-05] MEDS: Ferrous Gluconate 324 MG TAB PO SCH ×2 (09:52→20:13)
[2023-03-05] MEDS: tiZANidine HCl 4 MG TAB PO SCH ×4 (09:52→20:13)
[2023-03-05] MEDS: traMADol HCl 50 MG TAB PO PRN (22:50)
[2023-03-06] MEDS: HYDROcodone/Acetaminophen 10/325 mg Tablet PO PRN ×3 (04:13→20:31)
[2023-03-06 06:19] LABS: Hemoglobin 7.3 g/dL (12.0-16.0); Mean Corpuscular Hemoglobin 28.5 pg (27.0-31.0); Mean Corpuscular Volume 89.1 fl (78.0-98.0); Platelet Count 199 10x3/uL (130-400); RBC Distribution Width 14.3 % (11.5-14.5); Red Blood Cell (RBC) Count 2.56 mill/uL (4.20-5.40); White Blood Cell (WBC) Count 11.5 10x3/uL (4.8-10.8)
[2023-03-06 06:42] LABS: Anion Gap 8 mmol/L (10-20); BUN (Urea Nitrogen) 12 mg/dL (9.8-20.1); Calc. Creatinine Clearance 154 mL/min (70-130); Calcium 8.1 mg/dL (7.8-10.44); Carbon Dioxide 27 mmol/L (22-29); Chloride 103 mmol/L (98-107); Estimated GFR 103; Glucose 151 mg/dL (70-105); Potassium 3.6 mmol/L (3.5-5.1); Sodium 134 mmol/L (136-145)
[2023-03-06] MEDS: Gabapentin 300 MG CAP PO SCH ×3 (08:27→20:30)
[2023-03-06] MEDS: Ferrous Gluconate 324 MG TAB PO SCH ×2 (08:27→20:30)
[2023-03-06] MEDS: Potassium Chloride 10 MEQ TAB PO SCH (08:28)
[2023-03-06] MEDS: Senokot S 8.6-50 MG TAB PO SCH ×2 (08:28→20:30)
[2023-03-06] MEDS: Multivitamin W/ Minerals 1 TAB PO SCH (08:28)
[2023-03-06] MEDS: Loratadine 10 MG TAB PO SCH (08:29)
[2023-03-06] MEDS: DULoxetine 60 MG CAP PO SCH (08:29)
[2023-03-06] MEDS: Cyanocobalamin (Vitamin B-12) 1,000 MCG TAB PO SCH (08:29)
[2023-03-06] MEDS: Levothyroxine Sodium 75 MCG TAB PO SCH (08:29)
[2023-03-06] MEDS: Rosuvastatin 10 MG TAB PO SCH (08:29)
[2023-03-06] MEDS: Aspirin 81 mg Enteric Coated Tablet PO SCH ×2 (08:29→20:30)
[2023-03-06] MEDS: tiZANidine HCl 4 MG TAB PO SCH ×4 (08:29→20:30)
[2023-03-07 05:43] LABS: Hemoglobin 6.6 g/dL (12.0-16.0); Mean Corpuscular Hemoglobin 29.2 pg (27.0-31.0); Mean Corpuscular Volume 91.2 fl (78.0-98.0); Platelet Count 179 10x3/uL (130-400); RBC Distribution Width 14.1 % (11.5-14.5); Red Blood Cell (RBC) Count 2.26 mill/uL (4.20-5.40); White Blood Cell (WBC) Count 9.1 10x3/uL (4.8-10.8)
[2023-03-07] MEDS: HYDROcodone/Acetaminophen 10/325 mg Tablet PO PRN ×3 (07:39→20:28)
[2023-03-07] MEDS: Senokot S 8.6-50 MG TAB PO SCH ×2 (08:54→20:30)
[2023-03-07] MEDS: Cyanocobalamin (Vitamin B-12) 1,000 MCG TAB PO SCH (08:54)
[2023-03-07] MEDS: Aspirin 81 mg Enteric Coated Tablet PO SCH ×2 (08:54→20:29)
[2023-03-07] MEDS: Rosuvastatin 10 MG TAB PO SCH (08:54)
[2023-03-07] MEDS: Potassium Chloride 10 MEQ TAB PO SCH (08:54)
[2023-03-07] MEDS: Multivitamin W/ Minerals 1 TAB PO SCH (08:56)
[2023-03-07] MEDS: Loratadine 10 MG TAB PO SCH (08:56)
[2023-03-07] MEDS: Levothyroxine Sodium 75 MCG TAB PO SCH (08:57)
[2023-03-07] MEDS: tiZANidine HCl 4 MG TAB PO SCH ×4 (08:57→20:28)
[2023-03-07] MEDS: DULoxetine 60 MG CAP PO SCH (08:57)
[2023-03-07] MEDS: Gabapentin 300 MG CAP PO SCH ×3 (08:57→20:30)
[2023-03-07] MEDS: Ferrous Gluconate 324 MG TAB PO SCH ×2 (08:59→20:29)
[2023-03-07 20:12] LABS: Hemoglobin 7.7 g/dL (12.0-16.0); Mean Corpuscular HGB CONC 32.2 g/dL (32.0-36.0); Mean Corpuscular Hemoglobin 28.9 pg (27.0-31.0); Mean Corpuscular Volume 89.8 fl (78.0-98.0); Platelet Count 232 10x3/uL (130-400); RBC Distribution Width 14.9 % (11.5-14.5); Red Blood Cell (RBC) Count 2.66 mill/uL (4.20-5.40); White Blood Cell (WBC) Count 9.3 10x3/uL (4.8-10.8)
[2023-03-08] MEDS: HYDROcodone/Acetaminophen 10/325 mg Tablet PO PRN ×4 (04:32→19:17)
[2023-03-08 07:06] LABS: Mean Platelet Volume 10.2 fL (7.4-10.4); Platelet Count 280 10x3/uL (130-400); White Blood Cell (WBC) Count 8.7 10x3/uL (4.8-10.8)
[2023-03-08 07:25] LABS: Hemoglobin 7.8 g/dL (12.0-16.0); Mean Corpuscular HGB CONC 32.4 g/dL (32.0-36.0); Mean Corpuscular Hemoglobin 28.8 pg (27.0-31.0); Mean Corpuscular Volume 88.9 fl (78.0-98.0); RBC Distribution Width 15.3 % (11.5-14.5); Red Blood Cell (RBC) Count 2.71 mill/uL (4.20-5.40)
[2023-03-08] MEDS: Rosuvastatin 10 MG TAB PO SCH (10:12)
[2023-03-08] MEDS: Potassium Chloride 10 MEQ TAB PO SCH (10:12)
[2023-03-08] MEDS: Loratadine 10 MG TAB PO SCH (10:13)
[2023-03-08] MEDS: Multivitamin W/ Minerals 1 TAB PO SCH (10:13)
[2023-03-08] MEDS: Aspirin 81 mg Enteric Coated Tablet PO SCH ×2 (10:13→20:25)
[2023-03-08] MEDS: DULoxetine 60 MG CAP PO SCH (10:13)
[2023-03-08] MEDS: Levothyroxine Sodium 75 MCG TAB PO SCH (10:13)
[2023-03-08] MEDS: Cyanocobalamin (Vitamin B-12) 1,000 MCG TAB PO SCH (10:13)
[2023-03-08] MEDS: Senokot S 8.6-50 MG TAB PO SCH ×2 (10:14→20:24)
[2023-03-08] MEDS: tiZANidine HCl 4 MG TAB PO SCH ×4 (10:14→20:23)
[2023-03-08] MEDS: Ferrous Gluconate 324 MG TAB PO SCH ×2 (10:14→20:25)
[2023-03-08] MEDS: Gabapentin 300 MG CAP PO SCH ×3 (10:21→20:24)
[2023-03-08 14:26] LABS: Bacteria/HPF 2+ HPF (None Seen); Bilirubin Negative (Negative); Blood, Urine Negative (Negative); Clarity Clear (Clear); Glucose, Urine (Dipstick) Normal (Negative); Ketone, Urine Negative (Negative); Leukocyte 500 Leu/uL (Negative); Mucous/LPF Rare LPF (<2+); Nitrite Negative (Negative); Protein, Urine (Dipstick) 70 mg/dL (Neg-Trace); RBC/HPF 0-3 HPF (0-3); Specific Gravity, Urine 1.042 (1.002-1.036); WBC/HPF Greater than 50 HPF (0-3); Yeast-Budding Rare HPF (None Seen); pH, Urine 6.5 (5.0-9.0)
[2023-03-09] MEDS: HYDROcodone/Acetaminophen 10/325 mg Tablet PO PRN ×2 (05:17→12:17)
[2023-03-09 06:24] LABS: Mean Corpuscular HGB CONC 32.1 g/dL (32.0-36.0); Mean Corpuscular Volume 90.2 fl (78.0-98.0); Mean Platelet Volume 10.1 fL (7.4-10.4); Platelet Count 286 10x3/uL (130-400); RBC Distribution Width 14.8 % (11.5-14.5); Red Blood Cell (RBC) Count 2.76 mill/uL (4.20-5.40); White Blood Cell (WBC) Count 7.9 10x3/uL (4.8-10.8)
[2023-03-09] MEDS: Loratadine 10 MG TAB PO SCH (09:29)
[2023-03-09] MEDS: Potassium Chloride 10 MEQ TAB PO SCH (09:29)
[2023-03-09] MEDS: tiZANidine HCl 4 MG TAB PO SCH ×2 (09:29→12:17)
[2023-03-09] MEDS: Cyanocobalamin (Vitamin B-12) 1,000 MCG TAB PO SCH (09:29)
[2023-03-09] MEDS: Multivitamin W/ Minerals 1 TAB PO SCH (09:29)
[2023-03-09] MEDS: Ferrous Gluconate 324 MG TAB PO SCH (09:29)
[2023-03-09] MEDS: traMADol HCl 50 MG TAB PO PRN (09:29)
[2023-03-09] MEDS: Aspirin 81 mg Enteric Coated Tablet PO SCH (09:29)
[2023-03-09] MEDS: Levothyroxine Sodium 75 MCG TAB PO SCH (09:29)
[2023-03-09] MEDS: Senokot S 8.6-50 MG TAB PO SCH (09:29)
[2023-03-09] MEDS: DULoxetine 60 MG CAP PO SCH (09:30)
[2023-03-09] MEDS: Gabapentin 300 MG CAP PO SCH (09:30)
[2023-03-09] MEDS: Rosuvastatin 10 MG TAB PO SCH (09:30)
[2023-03-09 12:10] VITALS: BP 118/77; TEMP 98.4
== END 2023-03-09 15:18 | DRG 522 ==
LOC: SDC 05:56 → SURG A 07:58 → OBSVTOIN 03-07 11:16
PROVIDERS: ADMIT Orthopaedic Surgery; ATTEND Orthopaedic Surgery
PROC: 0SRB01Z Replacement of Left Hip Joint with Metal Synthetic Substitute, Open Approach (ICD-10-PCS; principal; 2023-03-04)
PROC: 0QP704Z Removal of Internal Fixation Device from Left Upper Femur, Open Approach (ICD-10-PCS; 2023-03-04)
PROC: 30233N1 Transfusion of Nonautologous Red Blood Cells into Peripheral Vein, Percutaneous Approach (ICD-10-PCS; 2023-03-05)
DX: S72.142K Displaced intertrochanteric fracture of left femur, subsequent encounter for closed fracture with nonunion (principal); D62 Acute posthemorrhagic anemia; F41.9 Anxiety disorder, unspecified; M19.90 Unspecified osteoarthritis, unspecified site; G89.29 Other chronic pain; F32.A Depression, unspecified; G43.909 Migraine, unspecified, not intractable, without status migrainosus; Z88.8 Allergy status to other drugs, medicaments and biological substances; Z88.2 Allergy status to sulfonamides; Z90.49 Acquired absence of other specified parts of digestive tract; Z90.710 Acquired absence of both cervix and uterus; Z98.84 Bariatric surgery status; Z98.42 Cataract extraction status, left eye; Z98.41 Cataract extraction status, right eye; Z82.49 Family history of ischemic heart disease and other diseases of the circulatory system; Z83.3 Family history of diabetes mellitus; Z87.891 Personal history of nicotine dependence; Z79.890 Hormone replacement therapy; Z79.899 Other long term (current) drug therapy
CPT/HCPCS: 36415; 36416; 36430; 72170; 80048; 81001; 85027; 86850; 86900; 86901; 87086; C1713; C1776; J1170; J2405; J2704; J3010; J3370; J3490; P9016

== ENCOUNTER 2023-05-11 21:42 | Inpatient (IN) | payer OTHER ==
[2023-05-11] MEDS ORDERED: NOREPINEPHRINE 8 MG/250 ML-D5W 250 ML ONE (21:46)
[2023-05-11 22:30] LABS: Analyzer IN Cardio ER; Base Excess (BEa) -10.9 mEq/L (-2.0 to +3.0); CO2 Tension 45.4 mmHg (35.0-45.0); Calcium, Ionized (arterial) 1.13 mmol/L (1.12-1.30); Carboxyhemoglobin (COHb) 0.1 gm% (0.0-3.0); Hematocrit-ABG 37 % (36.0-47.0); Hemoglobin (Hb) 12.6 g/dL (12.0-16.0); O2 Tension (PaO2), arterial 71.4 mmHg (80.0-100.0); Potassium - ABG Lab 4.36 mmol/L (3.70-5.30)
[2023-05-11 22:31] LABS: Puncture Site LRA
[2023-05-11 22:45] LABS: Hematocrit 37.7 % (36.0-47.0); Hemoglobin 11.2 g/dL (12.0-16.0); Mean Corpuscular HGB CONC 29.7 g/dL (32.0-36.0); Mean Corpuscular Volume 87.7 fl (78.0-98.0); Mean Platelet Volume 10.3 fL (7.4-10.4); Platelet Count 278 10x3/uL (130-400); RBC Distribution Width 15.2 % (11.5-14.5); White Blood Cell (WBC) Count 19.7 10x3/uL (4.8-10.8)
[2023-05-11] MEDS ORDERED: Cefepime 2 GM VIAL ONE (22:56)
[2023-05-11 23:02] LABS: Manual Diff?? YES
[2023-05-11 23:03] LABS: Delete Auto Diff?? YES
[2023-05-11 23:09] LABS: ALT (SGPT) 22 U/L (8-55); AST (SGOT) 62 U/L (5-34); Albumin 2.4 g/dL (3.5-5.0); Alkaline Phosphatase 98 U/L (40-110); Anion Gap 15 mmol/L (10-20); BUN (Urea Nitrogen) 35 mg/dL (9.8-20.1); Bilirubin, Total 0.4 mg/dL (0.2-1.2); Calc. Creatinine Clearance 0 mL/min (70-130); Carbon Dioxide 15 mmol/L (22-29); Chloride 115 mmol/L (98-107); Estimated GFR 21; Globulin 2.2 g/dL (2.4-3.5); Glucose 133 mg/dL (70-105); Lipase 15 U/L (8-78); Potassium 4.5 mmol/L (3.5-5.1); Protein, Total 4.6 g/dL (6.0-8.3); Sodium 140 mmol/L (136-145)
[2023-05-11 23:12] LABS: Troponin I 0.022 ng/mL (< 0.028)
[2023-05-11 23:17] LABS: Bacteria/HPF None Seen HPF (None Seen); Bilirubin Negative (Negative); Blood, Urine 3+ (Negative); CAUTI Indications for Culture Alt mental st,lethar; Clarity Turbid (Clear); Glucose, Urine (Dipstick) Normal (Negative); Ketone, Urine Negative (Negative); Leukocyte 75 Leu/uL (Negative); Nitrite Negative (Negative); Protein, Urine (Dipstick) 70 mg/dL (Neg-Trace); RBC/HPF 0-3 HPF (0-3); Specific Gravity, Urine 1.018 (1.002-1.036); Squamous Epithelial 0-3 HPF (0-3); Urobilinogen Normal mg/dL (Less than 2); pH, Urine 5.5 (5.0-9.0)
[2023-05-11 23:22] LABS: Urine Culture Reflex Yes Yes
[2023-05-11 23:39] LABS: Anisocytosis SLIGHT = 6-15 cells HPF (0-5); Band 46 % (5-11); Burr Cells SLIGHT = 2-5 cells HPF (0-1); CellaVision Operator ID LAB.JMM; Metamyelocyte 8 % (0-0); Monocytes 7 % (0-10); Myelocyte 3 % (0-0); Neutrophil 36 % (42-75); Platelet Adequacy Comment Platelets Normal; Polychromasia SLIGHT = 2-3 cells HPF (0-2); Smudge Cells 8.3 %; Total Cell Count 108
[2023-05-12] MEDS ORDERED: Ondansetron PF 4 MG/2 ML Vial IVP PRN (00:04)
[2023-05-12] MEDS ORDERED: Acetaminophen 650 MG Suppository PR PRN (00:04)
[2023-05-12] MEDS ORDERED: Ondansetron ODT 4 MG TAB PO PRN (00:04)
[2023-05-12] MEDS ORDERED: Ipratropium/Albuterol 3 ML NEB NEB PRN (00:31)
[2023-05-12 00:33] LABS: SARS-CoV-2 NAA Rapid Test Not Detected (NotDetected)
[2023-05-12 00:42] VITALS: BMI 43.3
[2023-05-12] MEDS ORDERED: Albumin 25% 25 GM/100 ML BOT IVPB SCH (00:45)
[2023-05-12] MEDS ORDERED: Dextrose 50% Abboject 50 ML SYRINGE SLOW IVP PRN (00:47)
[2023-05-12] MEDS ORDERED: HumaLOG 300 UNITS/3 ML VIAL SC PRN ×2 (00:47)
[2023-05-12] MEDS ORDERED: Dextrose 5% in Water 1,000 ML IV PRN (00:47)
[2023-05-12] MEDS ORDERED: Glucagon 1 MG/ML KIT IM PRN (00:47)
[2023-05-12] MEDS ORDERED: Hydrocortisone Sod Succ/PF 100 mg/2 ml Vial IVP SCH (01:00)
[2023-05-12] MEDS ORDERED: Vasopressin 20 UNITS in Sodium Chloride 0.9% 50 ML IV SCH (01:00)
[2023-05-12] MEDS ORDERED: Sodium Bicarbonate 75 MEQ in Sodium Chloride 0.45% 1,000 ML IV SCH (01:00)
[2023-05-12] MEDS: NOREPINEPHRINE 8 MG/250 ML-D5W 250 ML IVPB SCH ×2 (01:28→16:30)
[2023-05-12] MEDS ORDERED: Vancomycin Dose by Levels Sliding Scale (Wt > 99) FS SCH (01:30)
[2023-05-12 04:11] LABS: Hematocrit 37.5 % (36.0-47.0); Hemoglobin 11.4 g/dL (12.0-16.0); Mean Corpuscular HGB CONC 30.4 g/dL (32.0-36.0); Mean Corpuscular Hemoglobin 26.5 pg (27.0-31.0); Mean Platelet Volume 10.4 fL (7.4-10.4); Platelet Count 272 10x3/uL (130-400); RBC Distribution Width 15.2 % (11.5-14.5); Red Blood Cell (RBC) Count 4.31 mill/uL (4.20-5.40); White Blood Cell (WBC) Count 13.4 10x3/uL (4.8-10.8)
[2023-05-12 04:34] LABS: Anion Gap 15 mmol/L (10-20); BUN (Urea Nitrogen) 39 mg/dL (9.8-20.1); Calc. Creatinine Clearance 42 mL/min (70-130); Carbon Dioxide 18 mmol/L (22-29); Chloride 111 mmol/L (98-107); Estimated GFR 21; Glucose 178 mg/dL (70-105); Potassium 4.6 mmol/L (3.5-5.1); Sodium 139 mmol/L (136-145)
[2023-05-12 04:47] LABS: CK (CPK) 4323 U/L (29-168)
[2023-05-12 04:50] LABS: Legionella Urinary Ag Negative (Negative); Strep pneumo Urine Ag NEGATIVE (NEGATIVE)
[2023-05-12 05:02] LABS: Delete Auto Diff?? YES; Manual Diff?? YES
[2023-05-12] MEDS: Albumin 25% 25 GM/100 ML BOT IVPB SCH ×3 (05:36→17:57)
[2023-05-12 06:33] LABS: Band 45 % (5-11); Burr Cells MODERATE= 6-15 cells HPF (0-1); CellaVision Operator ID LAB.JMM; Large Platelets 3.4 % (0-5); Lymphocytes 9 % (21-51); Macrocytosis SLIGHT = 6-15 cells HPF (0-5); Metamyelocyte 21 % (0-0); Monocytes 5 % (0-10); Myelocyte 9 % (0-0); Neutrophil 12 % (42-75); Platelet Adequacy Comment Platelets Normal; Polychromasia SLIGHT = 2-3 cells HPF (0-2); Smudge Cells 15.3 %; Total Cell Count 118
[2023-05-12] MEDS ORDERED: Acetaminophen 120 MG Suppository ONE (06:41)
[2023-05-12] MEDS ORDERED: Vancomycin 1 GM in Premix Bag 1 BAG IVPB SCH (09:00)
[2023-05-12] MEDS: Pantoprazole 40 MG VIAL IVP SCH (10:00)
[2023-05-12] MEDS: Sodium Chloride 0.45% 1,000 ML IV SCH ×3 (10:52→19:15)
[2023-05-12 11:34] LABS: Hemoglobin A1c 5.6 % (4.0-6.0)
[2023-05-12 14:04] LABS: Amphetamine Not Detected (NotDetected); Barbiturates Screen Not Detected (NotDetected); Benzodiazepine Screen Not Detected (NotDetected); Cocaine Metabolite Screen Not Detected (NotDetected); Methadone Not Detected (NotDetected); Methamphetamine Not Detected (NotDetected); Opiate Screen Not Detected (NotDetected); Oxycodone Screen Not Detected (NotDetected); Phencyclidine (PCP) Not Detected (NotDetected); THC/Cannabinoid Screen Not Detected (NotDetected); Tricyclic Screen Not Detected (NotDetected)
[2023-05-12 16:32] LABS: Legionella Urinary Ag Negative (Negative); Strep pneumo Urine Ag NEGATIVE (NEGATIVE)
[2023-05-12 20:45] LABS: Vancomycin, Random 18.6 ug/mL (See Comment)
[2023-05-12] MEDS: Cefepime 1 GM in Sodium Chloride 0.9% 100 ML IVPB SCH (20:45)
[2023-05-12] MEDS ORDERED: Vancomycin HCl 750 MG in Sodium Chloride 0.9% 250 ML 250 ML IVPB SCH (21:15)
[2023-05-13] MEDS: Sodium Chloride 0.45% 1,000 ML IV SCH ×3 (05:35→18:12)
[2023-05-13 08:20] LABS: Hematocrit 29.8 % (36.0-47.0); Hemoglobin 9.3 g/dL (12.0-16.0); Mean Corpuscular HGB CONC 31.2 g/dL (32.0-36.0); Mean Corpuscular Hemoglobin 26.5 pg (27.0-31.0); Mean Corpuscular Volume 84.9 fl (78.0-98.0); Mean Platelet Volume 10.2 fL (7.4-10.4); Platelet Count 149 10x3/uL (130-400); RBC Distribution Width 15.6 % (11.5-14.5); Red Blood Cell (RBC) Count 3.51 mill/uL (4.20-5.40); White Blood Cell (WBC) Count 5.9 10x3/uL (4.8-10.8)
[2023-05-13 08:29] LABS: Delete Auto Diff?? YES; Manual Diff?? YES
[2023-05-13 08:40] LABS: Anion Gap 14 mmol/L (10-20); BUN (Urea Nitrogen) 43 mg/dL (9.8-20.1); Calc. Creatinine Clearance 45 mL/min (70-130); Calcium 8.2 mg/dL (7.8-10.44); Carbon Dioxide 18 mmol/L (22-29); Chloride 108 mmol/L (98-107); Estimated GFR 23; Glucose 98 mg/dL (70-105); Potassium 4.1 mmol/L (3.5-5.1); Sodium 136 mmol/L (136-145)
[2023-05-13 09:25] LABS: Band 41 % (5-11); Burr Cells MODERATE= 6-15 cells HPF (0-1); CellaVision Operator ID LAB.GE; Dohle Bodies SLIGHT; Giant Platelets 1.8 % (0-5); Large Platelets 4.4 % (0-5); Lymphocytes 7 % (21-51); Metamyelocyte 23 % (0-0); Monocytes 4 % (0-10); Myelocyte 4 % (0-0); Neutrophil 19 % (42-75); Platelet Adequacy Comment Platelets Normal; Polychromasia MODERATE = 3-4 cells HPF (0-2); Reflex for Review?? YES; Total Cell Count 113; Toxic Granulation SLIGHT; Vacuoles MODERATE
[2023-05-13] MEDS: Pantoprazole 40 MG VIAL IVP SCH (09:28)
[2023-05-13] MEDS ORDERED: Heparin 5,000 UNITS/ML VIAL SC SCH (09:30)
[2023-05-13] MEDS: Cefepime 1 GM in Sodium Chloride 0.9% 100 ML IVPB SCH (20:44)
[2023-05-13] MEDS: Heparin 5,000 UNITS/ML VIAL SC SCH (20:45)
[2023-05-13 21:26] LABS: Vancomycin, Random 14.8 ug/mL (See Comment)
[2023-05-13] MEDS ORDERED: Vancomycin 1 GM in Premix Bag 1 BAG IVPB SCH (22:00)
[2023-05-14] MEDS: Sodium Chloride 0.45% 1,000 ML IV SCH ×3 (03:02→20:50)
[2023-05-14 04:29] LABS: Hematocrit 30.4 % (36.0-47.0); Hemoglobin 9.7 g/dL (12.0-16.0); Mean Corpuscular HGB CONC 31.9 g/dL (32.0-36.0); Mean Corpuscular Hemoglobin 26.5 pg (27.0-31.0); Mean Corpuscular Volume 83.1 fl (78.0-98.0); Mean Platelet Volume 10.8 fL (7.4-10.4); Platelet Count 156 10x3/uL (130-400); RBC Distribution Width 15.2 % (11.5-14.5); Red Blood Cell (RBC) Count 3.66 mill/uL (4.20-5.40)
[2023-05-14 04:31] LABS: Delete Auto Diff?? YES; Manual Diff?? YES
[2023-05-14 04:52] LABS: Anion Gap 13 mmol/L (10-20); BUN (Urea Nitrogen) 32 mg/dL (9.8-20.1); CK (CPK) 699 U/L (29-168); Calc. Creatinine Clearance 62 mL/min (70-130); Calcium 8.3 mg/dL (7.8-10.44); Carbon Dioxide 20 mmol/L (22-29); Chloride 107 mmol/L (98-107); Estimated GFR 34; Glucose 97 mg/dL (70-105); Potassium 3.5 mmol/L (3.5-5.1); Sodium 136 mmol/L (136-145)
[2023-05-14 05:01] LABS: Band 31 % (5-11); CellaVision Operator ID LAB.CLH1; Eosinophils 2 % (0-10); Hypochromia SLIGHT = 6-15 cells HPF (0-5); Large Platelets 5.7 % (0-5); Lymphocytes 11 % (21-51); Macrocytosis SLIGHT = 6-15 cells HPF (0-5); Metamyelocyte 3 % (0-0); Monocytes 7 % (0-10); Neutrophil 45 % (42-75); Platelet Adequacy Comment Platelets Normal; Poikilocytosis MODERATE=16-30 cells HPF (0-5); Polychromasia SLIGHT = 2-3 cells HPF (0-2); Reactive Lymphocytes 1 % (0-10); Total Cell Count 106
[2023-05-14] MEDS: Levothyroxine Sodium 75 MCG TAB PO SCH (05:21)
[2023-05-14] MEDS: Heparin 5,000 UNITS/ML VIAL SC SCH ×2 (07:41→20:55)
[2023-05-14] MEDS: Pantoprazole 40 MG VIAL IVP SCH (07:41)
[2023-05-14] MEDS ORDERED: Cefepime 1 GM in Sodium Chloride 0.9% 100 ML IVPB SCH (11:00)
[2023-05-14] MEDS: Cefepime 1 GM in Sodium Chloride 0.9% 100 ML IVPB SCH (20:50)
[2023-05-14 21:48] LABS: Vancomycin, Random 14.3 ug/mL (See Comment)
[2023-05-14] MEDS: Acetaminophen 325 MG TAB PO PRN (21:59)
[2023-05-14] MEDS ORDERED: Vancomycin 1 GM in Premix Bag 1 BAG IVPB SCH (22:00)
[2023-05-15] MEDS: Acetaminophen 325 MG TAB PO PRN (04:51)
[2023-05-15] MEDS: Levothyroxine Sodium 75 MCG TAB PO SCH (04:52)
[2023-05-15] MEDS: Sodium Chloride 0.45% 1,000 ML IV SCH ×4 (05:20→22:29)
[2023-05-15 06:45] LABS: Hematocrit 33.6 % (36.0-47.0); Hemoglobin 10.4 g/dL (12.0-16.0); Platelet Count 188 10x3/uL (130-400); RBC Distribution Width 15.4 % (11.5-14.5); White Blood Cell (WBC) Count 7.8 10x3/uL (4.8-10.8)
[2023-05-15 06:46] LABS: Mean Platelet Volume 10.6 fL (7.4-10.4)
[2023-05-15 06:48] LABS: Delete Auto Diff?? YES; Manual Diff?? YES
[2023-05-15 07:00] LABS: Anion Gap 17 mmol/L (10-20); BUN (Urea Nitrogen) 21 mg/dL (9.8-20.1); CK (CPK) 170 U/L (29-168); Calc. Creatinine Clearance 94 mL/min (70-130); Carbon Dioxide 17 mmol/L (22-29); Chloride 105 mmol/L (98-107); Estimated GFR 56; Glucose 104 mg/dL (70-105); Potassium 3.1 mmol/L (3.5-5.1); Sodium 136 mmol/L (136-145)
[2023-05-15] MEDS: Cefepime 1 GM in Sodium Chloride 0.9% 100 ML IVPB SCH ×2 (08:57→20:28)
[2023-05-15] MEDS: Heparin 5,000 UNITS/ML VIAL SC SCH ×2 (08:58→20:28)
[2023-05-15 09:12] LABS: Band 28 % (5-11); Eosinophils 3 % (0-10); Lymphocytes 4 % (21-51); Metamyelocyte 3 % (0-0); Monocytes 15 % (0-10); Myelocyte 1 % (0-0); Neutrophil 46 % (42-75)
[2023-05-15 09:13] LABS: Anisocytosis SLIGHT = 6-15 cells (100X) (0-5/hpf); Burr Cells SLIGHT = 2-5 cells (100X) (0-1/hpf); Hypochromia SLIGHT = 6-15 cells (100X) (0-5/hpf)
[2023-05-15 09:14] LABS: Elliptocytes SLIGHT = 2-5 cells (100X) (0-1/hpf); Platelet Adequacy Comment Appears Adequate; RBC Morph Comment Within Normal Limits
[2023-05-15] MEDS ORDERED: Potassium Chloride 20 MEQ TAB PO SCH (11:30)
[2023-05-15] MEDS: traZODone HCl 50 MG TAB PO SCH (20:27)
[2023-05-15] MEDS: Gabapentin 300 MG CAP PO SCH (20:27)
[2023-05-15 21:27] LABS: Vancomycin, Random 12.9 ug/mL (See Comment)
[2023-05-15] MEDS ORDERED: VANCOMYCIN 1.25 GM/250 ML BAG 1.25 GM in Premix Bag 1 BAG IVPB SCH (22:00)
[2023-05-16] MEDS: Levothyroxine Sodium 75 MCG TAB PO SCH (05:21)
[2023-05-16] MEDS: Sodium Chloride 0.45% 1,000 ML IV SCH (05:23)
[2023-05-16 05:26] LABS: Hematocrit 34.3 % (36.0-47.0); Hemoglobin 10.8 g/dL (12.0-16.0); Mean Corpuscular HGB CONC 31.5 g/dL (32.0-36.0); Mean Corpuscular Hemoglobin 25.8 pg (27.0-31.0); Mean Corpuscular Volume 82.1 fl (78.0-98.0); Mean Platelet Volume 11.3 fL (7.4-10.4); Platelet Count 223 10x3/uL (130-400); RBC Distribution Width 15.5 % (11.5-14.5); Red Blood Cell (RBC) Count 4.18 mill/uL (4.20-5.40); White Blood Cell (WBC) Count 20.8 10x3/uL (4.8-10.8)
[2023-05-16 05:30] LABS: Delete Auto Diff?? YES; Manual Diff?? YES
[2023-05-16 05:53] LABS: Band 43 % (5-11); CellaVision Operator ID LAB.CLH1; Hypochromia SLIGHT = 6-15 cells HPF (0-5); Lymphocytes 4 % (21-51); Monocytes 8 % (0-10); Neutrophil 45 % (42-75); Platelet Adequacy Comment Platelets Normal; Polychromasia SLIGHT = 2-3 cells HPF (0-2); Reactive Lymphocytes 1 % (0-10); Total Cell Count 101
[2023-05-16 05:55] LABS: Anion Gap 17 mmol/L (10-20); BUN (Urea Nitrogen) 17 mg/dL (9.8-20.1); Calc. Creatinine Clearance 106 mL/min (70-130); Calcium 8.4 mg/dL (7.8-10.44); Carbon Dioxide 17 mmol/L (22-29); Chloride 105 mmol/L (98-107); Estimated GFR 65; Glucose 93 mg/dL (70-105); Sodium 136 mmol/L (136-145)
[2023-05-16 09:13] LABS: Hematocrit 32.1 % (36.0-47.0); Hemoglobin 10.5 g/dL (12.0-16.0); Mean Corpuscular HGB CONC 32.7 g/dL (32.0-36.0); Mean Corpuscular Hemoglobin 26.3 pg (27.0-31.0); Mean Corpuscular Volume 80.3 fl (78.0-98.0); Mean Platelet Volume 10.5 fL (7.4-10.4); Platelet Count 222 10x3/uL (130-400); RBC Distribution Width 15.4 % (11.5-14.5); White Blood Cell (WBC) Count 23.1 10x3/uL (4.8-10.8)
[2023-05-16 09:23] LABS: Delete Auto Diff?? YES; Manual Diff?? YES
[2023-05-16] MEDS: Cefepime 1 GM in Sodium Chloride 0.9% 100 ML IVPB SCH (09:51)
[2023-05-16 09:53] LABS: Band 30 % (5-11); CellaVision Operator ID LAB.GE; Lymphocytes 4 % (21-51); Metamyelocyte 1 % (0-0); Monocytes 2 % (0-10); Myelocyte 1 % (0-0); Neutrophil 62 % (42-75); Nucleated RBC (Manual Ct) 1 % (0); Platelet Adequacy Comment Platelets Normal; Polychromasia SLIGHT = 2-3 cells HPF (0-2); Total Cell Count 100
[2023-05-16] MEDS: Heparin 5,000 UNITS/ML VIAL SC SCH ×2 (09:54→20:29)
[2023-05-16] MEDS: Aspirin 81 mg Enteric Coated Tablet PO SCH (09:55)
[2023-05-16] MEDS: DULoxetine 60 MG CAP PO SCH (09:55)
[2023-05-16] MEDS: Gabapentin 300 MG CAP PO SCH ×2 (09:56→20:29)
[2023-05-16] MEDS: Cyanocobalamin (Vitamin B-12) 1,000 MCG TAB PO SCH (09:56)
[2023-05-16] MEDS: Ferrous Sulfate 325 MG TAB PO SCH (09:56)
[2023-05-16] MEDS: Potassium Chloride 10 MEQ TAB PO SCH (09:57)
[2023-05-16] MEDS: Fluticasone Propionate Nasal Spray 16 gm Bottle NASAL SCH (09:57)
[2023-05-16] MEDS ORDERED: Potassium Chloride 20 MEQ TAB PO SCH (10:15)
[2023-05-16] MEDS ORDERED: Meropenem 1 GM in Sodium Chloride 0.9% 100 ML IVPB SCH ×2 (11:00→12:00)
[2023-05-16] MEDS: traZODone HCl 50 MG TAB PO SCH (20:28)
[2023-05-16] MEDS: Meropenem 1 GM in Sodium Chloride 0.9% 100 ML IVPB SCH (20:28)
[2023-05-16] MEDS ORDERED: Doxycycline 100 MG in Sodium Chloride 0.9% 100 ML IVPB SCH (21:00)
[2023-05-17] MEDS: Meropenem 1 GM in Sodium Chloride 0.9% 100 ML IVPB SCH ×2 (04:06→14:08)
[2023-05-17] MEDS: Levothyroxine Sodium 75 MCG TAB PO SCH (05:50)
[2023-05-17 06:13] LABS: Hematocrit 31.9 % (36.0-47.0); Hemoglobin 10.3 g/dL (12.0-16.0); Mean Corpuscular HGB CONC 32.3 g/dL (32.0-36.0); Mean Corpuscular Volume 80.6 fl (78.0-98.0); Mean Platelet Volume 10.7 fL (7.4-10.4); Platelet Count 232 10x3/uL (130-400); RBC Distribution Width 15.7 % (11.5-14.5); Red Blood Cell (RBC) Count 3.96 mill/uL (4.20-5.40); White Blood Cell (WBC) Count 23.8 10x3/uL (4.8-10.8)
[2023-05-17 06:16] LABS: Delete Auto Diff?? YES; Manual Diff?? YES
[2023-05-17 06:37] LABS: Anisocytosis SLIGHT = 6-15 cells HPF (0-5); Band 4 % (5-11); Burr Cells SLIGHT = 2-5 cells HPF (0-1); CellaVision Operator ID lab.sh2; Lymphocytes 1 % (21-51); Macrocytosis SLIGHT = 6-15 cells HPF (0-5); Monocytes 7 % (0-10); Neutrophil 88 % (42-75); Ovalocytes SLIGHT = 2-5 cells HPF (0-1); Platelet Adequacy Comment Platelets Normal; Polychromasia MODERATE = 3-4 cells HPF (0-2); Total Cell Count 100
[2023-05-17 07:33] LABS: Anion Gap 14 mmol/L (10-20); BUN (Urea Nitrogen) 15 mg/dL (9.8-20.1); Calc. Creatinine Clearance 108 mL/min (70-130); Calcium 8.5 mg/dL (7.8-10.44); Carbon Dioxide 18 mmol/L (22-29); Chloride 105 mmol/L (98-107); Estimated GFR 68; Glucose 96 mg/dL (70-105); Potassium 2.9 mmol/L (3.5-5.1); Sodium 134 mmol/L (136-145)
[2023-05-17] MEDS ORDERED: Potassium Chloride 20 MEQ TAB PO SCH (09:00)
[2023-05-17] MEDS: Gabapentin 300 MG CAP PO SCH (09:53)
[2023-05-17] MEDS: Ferrous Sulfate 325 MG TAB PO SCH (09:53)
[2023-05-17] MEDS: Cyanocobalamin (Vitamin B-12) 1,000 MCG TAB PO SCH (09:53)
[2023-05-17] MEDS: DULoxetine 60 MG CAP PO SCH (09:53)
[2023-05-17] MEDS: Aspirin 81 mg Enteric Coated Tablet PO SCH (09:53)
[2023-05-17] MEDS: Heparin 5,000 UNITS/ML VIAL SC SCH (09:54)
[2023-05-17] MEDS: Fluticasone Propionate Nasal Spray 16 gm Bottle NASAL SCH (09:54)
[2023-05-17] MEDS: Potassium Chloride 10 MEQ TAB PO SCH (09:55)
[2023-05-17 13:45] LABS: Campy jejuni + coli by PCR Negative (Negative); STEC Shiga Toxin 1+2 Negative (Negative); Salmonella spp. by PCR Negative (Negative); Shigella spp + EIEC by PCR Negative (Negative)
[2023-05-17 20:13] VITALS: BP 123/79; TEMP 98.4
== END 2023-05-17 21:10 | disposition home or self-care (01) | DRG 871 ==
LOC: ERS 21:42 → CCU 22:11 → T4-B 05-14 10:45 → T4-A 05-16 16:20 → T4-B 05-16 16:21
PROVIDERS: ADMIT Student in an Organized Health Care Education/Training Program; ATTEND Family Medicine
PROC: 02H633Z Insertion of Infusion Device into Right Atrium, Percutaneous Approach (ICD-10-PCS; principal; 2023-05-11)
PROC: B548ZZA Ultrasonography of Superior Vena Cava, Guidance (ICD-10-PCS; 2023-05-11)
PROC: 3E033XZ Introduction of Vasopressor into Peripheral Vein, Percutaneous Approach (ICD-10-PCS; 2023-05-11)
PROC: 4A033R1 Measurement of Arterial Saturation, Peripheral, Percutaneous Approach (ICD-10-PCS; 2023-05-11)
PROC: 3E03329 Introduction of Other Anti-infective into Peripheral Vein, Percutaneous Approach (ICD-10-PCS; 2023-05-11)
PROC: 30233J1 Transfusion of Nonautologous Serum Albumin into Peripheral Vein, Percutaneous Approach (ICD-10-PCS; 2023-05-12)
DX: A41.9 Sepsis, unspecified organism (principal); G93.41 Metabolic encephalopathy; R65.21 Severe sepsis with septic shock; J18.9 Pneumonia, unspecified organism; J96.01 Acute respiratory failure with hypoxia; J96.02 Acute respiratory failure with hypercapnia; J90 Pleural effusion, not elsewhere classified; E87.4 Mixed disorder of acid-base balance; N17.9 Acute kidney failure, unspecified; M62.82 Rhabdomyolysis; Z68.41 Body mass index [BMI] 40.0-44.9, adult; Z96.642 Presence of left artificial hip joint; R68.0 Hypothermia, not associated with low environmental temperature; D64.9 Anemia, unspecified; E88.09 Other disorders of plasma-protein metabolism, not elsewhere classified; E83.51 Hypocalcemia; F31.9 Bipolar disorder, unspecified; G43.909 Migraine, unspecified, not intractable, without status migrainosus; G62.9 Polyneuropathy, unspecified; K21.9 Gastro-esophageal reflux disease without esophagitis; F41.9 Anxiety disorder, unspecified; E66.01 Morbid (severe) obesity due to excess calories; N18.30 Chronic kidney disease, stage 3 unspecified; E87.6 Hypokalemia; Z20.822 Contact with and (suspected) exposure to COVID-19; Z88.8 Allergy status to other drugs, medicaments and biological substances; Z88.2 Allergy status to sulfonamides; Z79.82 Long term (current) use of aspirin; Z79.899 Other long term (current) drug therapy; Z87.891 Personal history of nicotine dependence; Z90.710 Acquired absence of both cervix and uterus
CPT/HCPCS: 36415; 36416; 36556; 36600; 51702; 71045; 71250; 76770; 80048; 80053; 80202; 80306; 81001; 82533; 82550; 82805; 83036; 83605; 83690; 84145; 84484; 85025; 85060; 85379; 87040; 87070; 87077; 87081; 87086; 87149; 87205; 87324; 87449; 87505; 87899; 93005; 93970; 96365; 96366; 96367; C9113; J0692; J1644; J1650; J2185; J2405; J3370; J3370-JW; J3490; J7050; P9047; Q0162

== ENCOUNTER 2023-05-30 10:31 | Inpatient (IN) | payer OTHER ==
[2023-05-30 11:40] LABS: #Basophils 0.1 thou/uL (0.0-0.2); #Monocytes 0.8 thou/uL (0.11-0.59); #Neutrophils 6.7 thou/uL (1.40-6.50); %Basophils 0.5 % (0.0-1.0); %Eosinophils 0.2 % (0.0-10.0); %Lymphocytes 15.7 % (21.0-51.0); %Monocytes 9.2 % (0.0-10.0); %Neutrophils 73.4 % (42.0-75.0); Hematocrit 33.6 % (36.0-47.0); Hemoglobin 10.9 g/dL (12.0-16.0); Mean Corpuscular HGB CONC 32.4 g/dL (32.0-36.0); Mean Corpuscular Hemoglobin 25.5 pg (27.0-31.0); Mean Corpuscular Volume 78.5 fl (78.0-98.0); Mean Platelet Volume 9.1 fL (7.4-10.4); Platelet Count 467 10x3/uL (130-400); RBC Distribution Width 16.1 % (11.5-14.5); Red Blood Cell (RBC) Count 4.28 mill/uL (4.20-5.40); White Blood Cell (WBC) Count 9.1 10x3/uL (4.8-10.8)
[2023-05-30] MEDS ORDERED: Acetaminophen 500 MG TAB ONE ×2 (11:44→13:52)
[2023-05-30 12:05] LABS: ALT (SGPT) 11 U/L (8-55); AST (SGOT) 12 U/L (5-34); Albumin 2.8 g/dL (3.5-5.0); Alkaline Phosphatase 106 U/L (40-110); Anion Gap 15 mmol/L (10-20); BUN (Urea Nitrogen) 13 mg/dL (9.8-20.1); Bilirubin, Total 0.6 mg/dL (0.2-1.2); Calc. Creatinine Clearance 0 mL/min (70-130); Calcium 8.1 mg/dL (7.8-10.44); Carbon Dioxide 26 mmol/L (22-29); Chloride 97 mmol/L (98-107); Estimated GFR 53; Globulin 3.1 g/dL (2.4-3.5); Glucose 144 mg/dL (70-105); Protein, Total 5.9 g/dL (6.0-8.3); Sodium 135 mmol/L (136-145)
[2023-05-30 12:11] LABS: Potassium 2.5 mmol/L (3.5-5.1)
[2023-05-30] MEDS ORDERED: Cefepime 2 GM VIAL ONE (12:39)
[2023-05-30] MEDS ORDERED: LevoFLOXacin 750 mg/D5W 150 ml Premix Bag ONE (12:39)
[2023-05-30] MEDS ORDERED: VANCOMYCIN 2 GRAM/500 ML BAG 2 GM in Premix Bag 1 BAG IVPB SCH (13:30)
[2023-05-30] MEDS ORDERED: Ondansetron PF 4 MG/2 ML Vial ONE (13:52)
[2023-05-30] MEDS ORDERED: Potassium Chloride 20 MEQ TAB ONE ×2 (13:52→16:36)
[2023-05-30] MEDS ORDERED: Calcium Carbonate 500 MG ChewTAB PO PRN (14:04)
[2023-05-30] MEDS ORDERED: Acetaminophen 325 MG TAB PO PRN (14:04)
[2023-05-30] MEDS ORDERED: Benzonatate 100 MG CAP PO PRN (14:10)
[2023-05-30] MEDS ORDERED: Potassium Chloride 20 MEQ/100 ML PREMIX BAG ONE ×2 (14:59→16:36)
[2023-05-30] MEDS: Potassium Chloride 20 MEQ in Premix Bag 1 BAG IVPB SCH ×3 (15:14→17:20)
[2023-05-30] MEDS ORDERED: Metoclopramide HCl 10 MG/2 ML VIAL IVP SCH (15:30)
[2023-05-30] MEDS ORDERED: HumaLOG 300 UNITS/3 ML VIAL SC PRN ×2 (15:31)
[2023-05-30] MEDS ORDERED: Dextrose 50% Abboject 50 ML SYRINGE SLOW IVP PRN (15:31)
[2023-05-30] MEDS ORDERED: Dextrose 5% in Water 1,000 ML IV PRN (15:31)
[2023-05-30] MEDS ORDERED: Glucagon 1 MG/ML KIT IM PRN (15:31)
[2023-05-30 16:13] LABS: Lactic Acid 1.4 mmol/L (0.5-2.2)
[2023-05-30] MEDS: Sodium Chloride 0.9% 1,000 ML IV SCH ×3 (17:20→17:58)
[2023-05-30] MEDS ORDERED: Metoclopramide HCl 10 MG/2 ML VIAL ONE (17:45)
[2023-05-30 19:33] VITALS: BMI 40.5
[2023-05-30 20:12] LABS: Anion Gap 14 mmol/L (10-20); BUN (Urea Nitrogen) 11 mg/dL (9.8-20.1); Calc. Creatinine Clearance 108 mL/min (70-130); Calcium 7.3 mg/dL (7.8-10.44); Carbon Dioxide 19 mmol/L (22-29); Chloride 108 mmol/L (98-107); Estimated GFR 73; Glucose 95 mg/dL (70-105); Magnesium 1.2 mg/dL (1.6-2.6); Potassium 2.9 mmol/L (3.5-5.1); Sodium 138 mmol/L (136-145)
[2023-05-30] MEDS ORDERED: Electrolyte Replacement Protocol 1 EACH FS SCH (20:30)
[2023-05-30] MEDS ORDERED: Magnesium Sulfate In Water 4 GM in Premix Bag 1 BAG IVPB SCH (21:00)
[2023-05-30] MEDS ORDERED: Magnesium 2 GM/50 ML(in water) 2 GM in Premix Bag 1 BAG IVPB SCH (21:00)
[2023-05-30] MEDS: Gabapentin 300 MG CAP PO SCH ×2 (21:05→21:06)
[2023-05-30] MEDS: traZODone HCl 50 MG TAB PO SCH (21:05)
[2023-05-30] MEDS: Potassium Chloride 40 MEQ in Sodium Chloride 0.9% 250 ML 250 ML IVPB SCH (21:28)
[2023-05-31] MEDS: Potassium Chloride 40 MEQ in Sodium Chloride 0.9% 250 ML 250 ML IVPB SCH (00:28)
[2023-05-31] MEDS ORDERED: Cefepime 1 GM in Sodium Chloride 0.9% 100 ML IVPB SCH (01:00)
[2023-05-31] MEDS: Sodium Chloride 0.9% 1,000 ML IV SCH (03:31)
[2023-05-31 05:20] LABS: #Eosinphils 0.1 thou/uL (0.0-0.7); #Monocytes 0.8 thou/uL (0.11-0.59); #Neutrophils 4.1 thou/uL (1.40-6.50); %Basophils 0.5 % (0.0-1.0); %Eosinophils 0.8 % (0.0-10.0); %Lymphocytes 20.3 % (21.0-51.0); %Monocytes 12.3 % (0.0-10.0); %Neutrophils 64.8 % (42.0-75.0); Hematocrit 31.3 % (36.0-47.0); Hemoglobin 9.6 g/dL (12.0-16.0); Mean Corpuscular HGB CONC 30.7 g/dL (32.0-36.0); Mean Corpuscular Hemoglobin 25.5 pg (27.0-31.0); Mean Platelet Volume 8.9 fL (7.4-10.4); Platelet Count 376 10x3/uL (130-400); RBC Distribution Width 16.4 % (11.5-14.5); Red Blood Cell (RBC) Count 3.77 mill/uL (4.20-5.40); White Blood Cell (WBC) Count 6.3 10x3/uL (4.8-10.8)
[2023-05-31 05:59] LABS: ALT (SGPT) 10 U/L (8-55); AST (SGOT) 15 U/L (5-34); Albumin 2.3 g/dL (3.5-5.0); Alkaline Phosphatase 89 U/L (40-110); Anion Gap 13 mmol/L (10-20); BUN (Urea Nitrogen) 7 mg/dL (9.8-20.1); Bilirubin, Total 0.4 mg/dL (0.2-1.2); Calc. Creatinine Clearance 119 mL/min (70-130); Calcium 7.7 mg/dL (7.8-10.44); Carbon Dioxide 20 mmol/L (22-29); Chloride 112 mmol/L (98-107); Estimated GFR 81; Globulin 2.5 g/dL (2.4-3.5); Glucose 115 mg/dL (70-105); Magnesium 2.2 mg/dL (1.6-2.6); Phosphorus 2.3 mg/dL (2.3-4.7); Potassium 4.4 mmol/L (3.5-5.1); Protein, Total 4.8 g/dL (6.0-8.3); Sodium 141 mmol/L (136-145)
[2023-05-31] MEDS: Lactated Ringer's 1,000 ML IV SCH ×2 (09:30→17:47)
[2023-05-31] MEDS: Aspirin 81 mg Enteric Coated Tablet PO SCH (09:31)
[2023-05-31] MEDS: Levothyroxine Sodium 75 MCG TAB PO SCH (09:32)
[2023-05-31] MEDS: DULoxetine 60 MG CAP PO SCH (09:32)
[2023-05-31] MEDS: Famotidine/PF 20 mg/2ml Vial SLOW IVP SCH ×2 (09:32→20:13)
[2023-05-31] MEDS: Gabapentin 300 MG CAP PO SCH ×2 (09:32→20:22)
[2023-05-31] MEDS: Rosuvastatin 10 MG TAB PO SCH (09:32)
[2023-05-31] MEDS: Cefepime 2 GM in Sodium Chloride 0.9% 100 ML IVPB SCH (14:29)
[2023-05-31] MEDS ORDERED: VANCOMYCIN 2 GRAM/500 ML BAG 2 GM in Premix Bag 1 BAG IVPB SCH (15:00)
[2023-05-31] MEDS: Ondansetron PF 4 MG/2 ML Vial IVP PRN (15:43)
[2023-05-31] MEDS ORDERED: Promethazine HCl 12.5 MG in Sodium Chloride 0.9% 50 ML IVPB PRN (18:59)
[2023-05-31] MEDS: traZODone HCl 50 MG TAB PO SCH (20:22)
[2023-06-01] MEDS: Cefepime 2 GM in Sodium Chloride 0.9% 100 ML IVPB SCH ×3 (00:22→14:23)
[2023-06-01 04:58] LABS: #Basophils 0.1 thou/uL (0.0-0.2); #Eosinphils 0.1 thou/uL (0.0-0.7); #Monocytes 0.6 thou/uL (0.11-0.59); #Neutrophils 1.5 thou/uL (1.40-6.50); %Basophils 1.5 % (0.0-1.0); %Eosinophils 2.8 % (0.0-10.0); %Lymphocytes 37.4 % (21.0-51.0); %Monocytes 15.5 % (0.0-10.0); %Neutrophils 38.5 % (42.0-75.0); Hemoglobin 9.5 g/dL (12.0-16.0); Mean Corpuscular HGB CONC 31.7 g/dL (32.0-36.0); Mean Corpuscular Hemoglobin 25.5 pg (27.0-31.0); Mean Corpuscular Volume 80.6 fl (78.0-98.0); Mean Platelet Volume 9.4 fL (7.4-10.4); Platelet Count 384 10x3/uL (130-400); RBC Distribution Width 16.7 % (11.5-14.5); Red Blood Cell (RBC) Count 3.72 mill/uL (4.20-5.40); White Blood Cell (WBC) Count 3.9 10x3/uL (4.8-10.8)
[2023-06-01] MEDS: Lactated Ringer's 1,000 ML IV SCH (05:10)
[2023-06-01 06:55] LABS: ALT (SGPT) 9 U/L (8-55); AST (SGOT) 9 U/L (5-34); Albumin 2.3 g/dL (3.5-5.0); Alkaline Phosphatase 90 U/L (40-110); Anion Gap 11 mmol/L (10-20); BUN (Urea Nitrogen) 5 mg/dL (9.8-20.1); Bilirubin, Total 0.4 mg/dL (0.2-1.2); Calc. Creatinine Clearance 126 mL/min (70-130); Calcium 7.9 mg/dL (7.8-10.44); Carbon Dioxide 23 mmol/L (22-29); Chloride 110 mmol/L (98-107); Estimated GFR 87; Globulin 2.5 g/dL (2.4-3.5); Glucose 118 mg/dL (70-105); Magnesium 1.5 mg/dL (1.6-2.6); Potassium 2.7 mmol/L (3.5-5.1); Protein, Total 4.8 g/dL (6.0-8.3); Sodium 141 mmol/L (136-145)
[2023-06-01] MEDS ORDERED: Magnesium 2 GM/50 ML(in water) 2 GM in Premix Bag 1 BAG IVPB SCH (08:00)
[2023-06-01] MEDS: Famotidine/PF 20 mg/2ml Vial SLOW IVP SCH (09:12)
[2023-06-01] MEDS: Aspirin 81 mg Enteric Coated Tablet PO SCH (09:12)
[2023-06-01] MEDS: Ondansetron PF 4 MG/2 ML Vial IVP PRN (09:12)
[2023-06-01] MEDS: Gabapentin 300 MG CAP PO SCH ×2 (09:13→20:24)
[2023-06-01] MEDS: DULoxetine 60 MG CAP PO SCH (09:13)
[2023-06-01] MEDS: Rosuvastatin 10 MG TAB PO SCH (09:13)
[2023-06-01] MEDS: Potassium Chloride 20 MEQ TAB PO SCH ×2 (09:13→12:12)
[2023-06-01] MEDS: Levothyroxine Sodium 75 MCG TAB PO SCH (09:13)
[2023-06-01] MEDS ORDERED: tiZANidine HCl 4 MG TAB PO PRN (09:14)
[2023-06-01] MEDS ORDERED: GALCANEZUMAB GNLM 120 MG/ML SQ SCH (09:15)
[2023-06-01] MEDS: Multivitamin W/ Minerals 1 TAB PO SCH (09:51)
[2023-06-01] MEDS: Cyanocobalamin (Vitamin B-12) 1,000 MCG TAB PO SCH (09:51)
[2023-06-01] MEDS: Loratadine 10 MG TAB PO SCH (09:51)
[2023-06-01] MEDS ORDERED: Potassium Chloride 20 MEQ in Premix Bag 1 BAG IVPB SCH (10:00)
[2023-06-01] MEDS ORDERED: LevoFLOXacin 750 mg/D5W 750 MG in Premix Bag 1 BAG IVPB SCH (14:15)
[2023-06-01] MEDS: traZODone HCl 50 MG TAB PO SCH (20:25)
[2023-06-02 00:45] VITALS: TEMP 98.7
[2023-06-02 07:28] VITALS: BP 123/66
[2023-06-02] MEDS: Gabapentin 300 MG CAP PO SCH (07:38)
[2023-06-02] MEDS: Multivitamin W/ Minerals 1 TAB PO SCH (08:09)
[2023-06-02] MEDS: Aspirin 81 mg Enteric Coated Tablet PO SCH (08:09)
[2023-06-02] MEDS: Levothyroxine Sodium 75 MCG TAB PO SCH (08:09)
[2023-06-02] MEDS: DULoxetine 60 MG CAP PO SCH (08:09)
[2023-06-02] MEDS: Rosuvastatin 10 MG TAB PO SCH (08:09)
[2023-06-02] MEDS: Cyanocobalamin (Vitamin B-12) 1,000 MCG TAB PO SCH (08:09)
[2023-06-02] MEDS: Loratadine 10 MG TAB PO SCH (08:09)
[2023-06-02] MEDS ORDERED: Cetirizine HCl 10 MG TAB PO SCH (09:00)
[2023-06-02] MEDS ORDERED: Non-Formulary Item 1 EACH (Cyanocobalamin (Vitamin B-12) [Vitamin B-12] 1,000 MCG Capsule PO SCH (09:00)
[2023-06-02] MEDS ORDERED: Non-Formulary Item 1 EACH (Multivit-Min/Iron/Folic/Lutein [Centrum Silver Women] 1 TABLET PO SCH (09:00)
[2023-06-02 09:36] LABS: Anion Gap 9 mmol/L (10-20); BUN (Urea Nitrogen) 6 mg/dL (9.8-20.1); Calc. Creatinine Clearance 134 mL/min (70-130); Calcium 7.6 mg/dL (7.8-10.44); Carbon Dioxide 25 mmol/L (22-29); Chloride 108 mmol/L (98-107); Estimated GFR 94; Glucose 157 mg/dL (70-105); Potassium 2.9 mmol/L (3.5-5.1); Sodium 139 mmol/L (136-145)
[2023-06-02] MEDS ORDERED: Potassium Chloride 20 MEQ TAB PO SCH (11:00)
[2023-06-15] MEDS ORDERED: Galcanezumab-Gnlm [Emgality Pen] 120 MG/ML Pen.Injctr SC SCH (12:00)
== END 2023-06-02 11:58 | disposition home or self-care (01) | DRG 871 ==
LOC: ERS 10:31 → SUATTDRO 10:31 → ERHOLD 14:09 → IMCU/EMU 18:40 → T4-B 05-31 16:50
PROVIDERS: ADMIT Internal Medicine; ATTEND Internal Medicine
DX: A41.9 Sepsis, unspecified organism (principal); J18.9 Pneumonia, unspecified organism; N17.9 Acute kidney failure, unspecified; E87.1 Hypo-osmolality and hyponatremia; E87.20 Acidosis, unspecified; I10 Essential (primary) hypertension; E78.5 Hyperlipidemia, unspecified; E87.6 Hypokalemia; E03.9 Hypothyroidism, unspecified; E11.40 Type 2 diabetes mellitus with diabetic neuropathy, unspecified; F39 Unspecified mood [affective] disorder; Z96.649 Presence of unspecified artificial hip joint; E83.42 Hypomagnesemia; G43.909 Migraine, unspecified, not intractable, without status migrainosus; D64.9 Anemia, unspecified; Z88.2 Allergy status to sulfonamides; Z88.8 Allergy status to other drugs, medicaments and biological substances; Z79.899 Other long term (current) drug therapy; Z79.890 Hormone replacement therapy; Z79.82 Long term (current) use of aspirin; Z90.49 Acquired absence of other specified parts of digestive tract; Z90.710 Acquired absence of both cervix and uterus; Z87.891 Personal history of nicotine dependence
CPT/HCPCS: 36415; 36416; 71045; 80048; 80053; 83605; 83735; 84100; 84484; 85025; 87040; 87324; 87449; 93005; 96361; 96365; 96366; 96367; 96368; 96375; 96376; J0692; J1956; J2405; J2550; J2765; J3370; J3475; J3480; J3490; J7050; J7120; S0028

== ENCOUNTER 2024-01-06 05:36 | Day surgery (SDC) | payer OTHER ==
[2024-01-05 12:53] VITALS: BMI 34.4
[2024-01-06] MEDS ORDERED: Lidocaine 2% PF 5 ML VIAL ONE (07:34)
[2024-01-06] MEDS ORDERED: PROPOFOL 20 ML ONE ×2 (07:35→07:50)
== END 2024-01-06 08:41 | disposition home or self-care (01) ==
LOC: SDC 05:36
PROVIDERS: ATTEND Internal Medicine Gastroenterology
PROC: 0DB68ZX Excision of Stomach, Via Natural or Artificial Opening Endoscopic, Diagnostic (ICD-10-PCS; principal; 2024-01-06)
DX: K21.00 Gastro-esophageal reflux disease with esophagitis, without bleeding (principal); K22.70 Barrett's esophagus without dysplasia; D64.9 Anemia, unspecified; F32.A Depression, unspecified; M81.0 Age-related osteoporosis without current pathological fracture; E03.9 Hypothyroidism, unspecified; G43.909 Migraine, unspecified, not intractable, without status migrainosus; K44.9 Diaphragmatic hernia without obstruction or gangrene; E87.6 Hypokalemia; E11.42 Type 2 diabetes mellitus with diabetic polyneuropathy; J18.9 Pneumonia, unspecified organism; Z90.710 Acquired absence of both cervix and uterus; Z90.49 Acquired absence of other specified parts of digestive tract; Z98.84 Bariatric surgery status; Z98.890 Other specified postprocedural states
CPT/HCPCS: 36416; 88305; 88312; 88313; J2001; J2704